=== PATIENT | male | born 1950 | race Caucasian/White ===

== ENCOUNTER 2017-09-24 10:22 | Emergency (ER) | payer MEDICARE, OTHER ==
[~2017-09-24 10:22] MED LIST: ISOVUE-370 76%-LOCM 1 ML ONE
[2017-09-24 11:11] LABS: #Eosinphils 0.4 thou/uL (0.0-0.7); #Lymphocytes 2.8 thou/uL (1.20-3.40); #Neutrophils 5.4 thou/uL (1.40-6.50); %Basophils 0.3 % (0.0-1.0); %Lymphocytes 29.3 % (21.0-51.0); %Monocytes 10.2 % (0.0-10.0); Hematocrit 52.8 % (42.0-52.0); Mean Platelet Volume 8.3 fL (7.4-10.4); Red Blood Cell (RBC) Count 5.86 mill/uL (4.70-6.10); White Blood Cell (WBC) Count 9.6 thou/uL (4.8-10.8)
[2017-09-24 11:31] LABS: ALT (SGPT) 39 U/L (8-55); AST (SGOT) 45 U/L (5-34); Alkaline Phosphatase 68 U/L (40-150); Anion Gap 13 mmol/L (10-20); BUN (Urea Nitrogen) 31 mg/dL (8.4-25.7); Bilirubin, Total 0.4 mg/dL (0.2-1.2); Calc. Creatinine Clearance 0 mL/min (70-130); Calcium 10.6 mg/dL (7.8-10.44); Carbon Dioxide 35 mmol/L (23-31); Chloride 96 mmol/L (98-107); Estimated GFR-MDRD 58; Globulin 4.2 g/dL (2.4-3.5); Protein, Total 8.7 g/dL (5.8-8.1)
--- NOTE | 2017-09-24 11:52 | RAD ---
CHEST PA AND LATERAL: HISTORY: A 66-year-old male with a history of dyspnea, shortness of breath, and COPD exacerbation. COMPARISON: 12/09/2016 FINDINGS: Mild stable increased linear and interstitial markings, particularly in the infrahilar and lower lung zones, evidence for stable chronic disease. Heart size is within normal limits. Stable biapical pl eural thickening. IMPRESSION: No acute intrathoracic disease. Stable chronic changes. POS: [facility]
[2017-09-24] MEDS ORDERED: methylPREDNISolone Sod Succ/PF 125 MG/2 ML VIAL ONE (12:29)
[2017-09-24] MEDS ORDERED: Water For Inject, Bacteriostat 30 ML ONE (12:30)
[2017-09-24 12:41] LABS: Modified Allen's Test POSITIVE; Oxyhemoglobin 93.9 % (94.0-97.0); Sodium 142 mmol/L (135-148)
[2017-09-24 12:42] LABS: Mode 3L/M NASAL CANNULA
[2017-09-24 12:55] LABS: Troponin I Less than 0.010 ng/mL (< 0.028)
--- NOTE | 2017-09-24 13:33 | CT ---
NONCONTRAST ENHANCED CT CHEST: Date: 09/24/17 HISTORY: Productive cough. FINDINGS: Noncontrast enhanced CT of the chest is performed. Coronary artery calcifications seen. Some minimal superior and AP window prominent lymph nodes seen. These are stable and unchanged since the previous comparison CT of July 2014 and are unchanged. No newly developed masses or lesions are seen. No ev idence of pulmonary parenchymal masses seen. No other significant pulmonary, parenchymal, or mediasti nal abnormalities noted. No evidence of pleural or pericardial effusions seen. IMPRESSION: Some coronary artery calcifications. Otherwise unremarkable noncontrast enhanced CT chest. POS: [facility]
== END 2017-09-24 15:57 | disposition home or self-care (01) ==
LOC: ERS 10:22
DX: J44.1 Chronic obstructive pulmonary disease with (acute) exacerbation (principal); I50.9 Heart failure, unspecified; Z87.891 Personal history of nicotine dependence; Z79.82 Long term (current) use of aspirin; Z79.899 Other long term (current) drug therapy; Z79.4 Long term (current) use of insulin
CPT/HCPCS: 71020; 71250; 80053; 82553; 82805; 83880; 84484; 85025; 93005; 94640; 94760; 96374; J2930; J7620

== ENCOUNTER 2018-01-27 09:00 | Day surgery (SDC) | payer MEDICARE ==
[2018-01-26 11:46] VITALS: BMI 47.6
--- NOTE | 2018-01-27 12:06 | OP ---
DATE OF PROCEDURE: 01/27/2018 SURGEON: Jerman Claros M.D. HOUSING INSTALLER SURGEON: None. PROCEDURE: Colonoscopy with snare polypectomy. INDICATION: 1. Positive Cologuard test. 2. This is the patient's first colonoscopy. MEDICATIONS: See anesthesia record. FINDINGS: After discussion of the risks, benefits and alternatives of the procedure, informed consen t was obtained and witnessed. Pre-endoscopic cardiopulmonary examination was satisfactory. Timeout was performed before sedation was achieved. Sedation was achieved with anesthesia assistance in the endoscopy unit. PROCEDURE IN DETAIL: A digital rectal exam was performed which demonstrated some external hemorrhoid s. A Pentax adult colonoscope was inserted into the anus and passed forward to the cecum in the usua l fashion. The cecal base was identified by the ileocecal valve. I was unable to visualize the appe ndiceal orifice due to a poor bowel preparation. The bowel preparation was poor throughout the colon , particularly in the right colon with a large amount of liquid and semi-solid stool obscuring a sign ificant portion of the colonic mucosa. I did complete the exam to the cecum to rule out large mass l esions, but certainly polyps less than 6 mm in size may have been missed. Where visualized, the colo yahir mucosa appeared normal. There was a 3 mm sessile polyp identified in the sigmoid colon. This wa s completely removed with cold snare and retrieved for pathology. Retroflexion in the rectum was unr emarkable. The colonoscope was completely withdrawn and the patient allowed to recover. The patient tolerated the procedure well. There were no immediate post-procedure complications. IMPRESSION: 1. A 3 mm sigmoid colon polyp, completely removed with cold snare and retrieved for pathology. 2. Poor bowel preparation, with large amount of stool obscuring a significant portion of the colonic mucosa. RECOMMENDATIONS: 1. Follow up pathology on the sigmoid colon polyp. 2. Colonoscopy will need to be repeated at the patient's convenience within the next couple of month s, due to the poor bowel preparation.
[2018-01-27] MEDS ORDERED: PROPOFOL 200 MG/20 ML VIAL ONE (15:23)
[2018-01-27] MEDS ORDERED: Lidocaine 1% PF 5 ML VIAL ONE (15:23)
== END 2018-01-27 13:24 | disposition home or self-care (01) ==
LOC: SDC 09:00
PROVIDERS: ATTEND Internal Medicine
PROC: 0DBH8ZX Excision of Cecum, Via Natural or Artificial Opening Endoscopic, Diagnostic (ICD-10-PCS; principal; 2018-01-27)
DX: K63.5 Polyp of colon (principal); K64.4 Residual hemorrhoidal skin tags; R19.5 Other fecal abnormalities; J44.9 Chronic obstructive pulmonary disease, unspecified; E78.5 Hyperlipidemia, unspecified; E11.9 Type 2 diabetes mellitus without complications; I50.9 Heart failure, unspecified; E66.01 Morbid (severe) obesity due to excess calories; Z68.42 Body mass index [BMI] 45.0-49.9, adult; Z87.891 Personal history of nicotine dependence; Z79.4 Long term (current) use of insulin; Z79.82 Long term (current) use of aspirin; Z79.899 Other long term (current) drug therapy
CPT/HCPCS: 36416; 88305; J2001; J2704

== ENCOUNTER 2018-07-27 10:20 | Outpatient (CLI) | payer MEDICARE ==
--- NOTE | 2018-07-27 12:42 | ULT ---
ABDOMINAL AORTIC ULTRASOUND WITH GRAYSCALE AND COLOR DOPPLER IMAGING AND SPECTRAL ANALYSIS: Clinical history: Abdominal aortic screening for aneurysm. Comparison: 07-09-17 FINDINGS: There is diminished acoustic penetration of the abdomen due to body habitus. The proximal abdominal a selene does approximate 3 cm, as visualized. Midabdominal aorta is slightly greater than 2 cm as demons trated. Distal aorta not well visualized. IMPRESSION: Suboptimal visualization of the aorta. Borderline aneurysmal dilatation is suggested, however, involv ing the proximal aorta. This may be further assessed with follow up CT of the abdomen for further claudette racterization. POS: [facility]
== END 2018-07-27 10:21 | disposition home or self-care (01) ==
LOC: BICULT 10:20
PROVIDERS: ATTEND Nurse Practitioner Family
DX: Z13.6 Encounter for screening for cardiovascular disorders (principal)
CPT/HCPCS: 76775

== ENCOUNTER 2019-04-28 10:06 | Emergency (ER) | payer MEDICARE ==
[2019-04-28 10:32] LABS: #Eosinphils 0.4 thou/uL (0.0-0.7); #Neutrophils 7.3 thou/uL (1.40-6.50); %Basophils 0.4 % (0.0-1.0); %Eosinophils 3.1 % (0.0-10.0); %Lymphocytes 25.6 % (21.0-51.0); %Monocytes 8.4 % (0.0-10.0); %Neutrophils 62.5 % (42.0-75.0); Hemoglobin 15.3 g/dL (14.0-18.0); Mean Corpuscular HGB CONC 30.7 g/dL (32.0-36.0); Mean Corpuscular Hemoglobin 26.1 pg (27.0-31.0); Mean Corpuscular Volume 85.3 fL (78.0-98.0); Mean Platelet Volume 7.7 fL (7.4-10.4); Platelet Count 382 thou/uL (130-400); RBC Distribution Width 14.9 % (11.5-14.5); Red Blood Cell (RBC) Count 5.86 mill/uL (4.70-6.10); White Blood Cell (WBC) Count 11.6 thou/uL (4.8-10.8)
[2019-04-28] MEDS ORDERED: methylPREDNISolone Sod Succ/PF 125 MG/2 ML VIAL ONE (10:36)
[2019-04-28 10:57] LABS: ALT (SGPT) 54 U/L (8-55); AST (SGOT) 51 U/L (5-34); Albumin 4.7 g/dL (3.4-4.8); Alkaline Phosphatase 67 U/L (40-150); Anion Gap 15 mmol/L (10-20); BUN (Urea Nitrogen) 32 mg/dL (8.4-25.7); Bilirubin, Total 0.4 mg/dL (0.2-1.2); Calc. Creatinine Clearance 0 mL/min (70-130); Calcium 10.9 mg/dL (7.8-10.44); Carbon Dioxide 31 mmol/L (23-31); Chloride 97 mmol/L (98-107); Estimated GFR-MDRD 62; Glucose 133 mg/dL (80-115); Potassium 4.9 mmol/L (3.5-5.1); Protein, Total 8.7 g/dL (5.8-8.1); Sodium 138 mmol/L (136-145)
--- NOTE | 2019-04-28 10:57 | RAD ---
Exam: Chest one view HISTORY:Short of breath Comparison: 11/18/2016 FINDINGS: Lungs: No masses or consolidation. Cardiac silhouette:Accentuated by portable technique. Vascular calcification. Pulmonary vessels: Mild central prominence Pleural Spaces: Clear Pneumothorax: None Osseous abnormalities: None of acuity. IMPRESSION: Evidence to indicate mild fluid overload. Correlate clinically.
[2019-04-28] MEDS ORDERED: Aspirin Chewable 81 MG TAB ONE (13:54)
--- NOTE | 2019-04-30 13:23 | EKG ---
Test Reason : SOB Blood Pressure : / mmHG Vent. Rate : 096 BPM Atrial Rate : 096 BPM P-R Int : 144 ms QRS Dur : 108 ms QT Int : 354 ms P-R-T Axes : 053 084 057 degrees QTc Int : 447 ms Normal sinus rhythm Normal ECG No ST elevation/PR Confirmed by JOSHUA Johnson, MIS ([id number]), editorial intern ROSEANN FRANCO ([id number]) on 04/30/2019 1:23:33 PM Referred By: JOSHUA Confirmed By:MIS LEWIS M.D.
== END 2019-04-28 15:13 | disposition home or self-care (01) ==
LOC: ERS 10:06
DX: J44.1 Chronic obstructive pulmonary disease with (acute) exacerbation (principal); E78.5 Hyperlipidemia, unspecified; I11.0 Hypertensive heart disease with heart failure; I50.9 Heart failure, unspecified; Z87.891 Personal history of nicotine dependence
CPT/HCPCS: 36415; 36416; 71045; 80053; 83880; 84484; 85025; 93005; 94640; 96361; 96374; J2930; J7620

== ENCOUNTER 2019-05-19 05:53 | Day surgery (SDC) | payer MEDICARE ==
[2019-05-18 13:19] VITALS: BMI 46.2
[2019-05-19] MEDS ORDERED: Lidocaine 1% (PF) 30 ML VIAL ONE (06:39)
[2019-05-19 06:46] LABS: PTT 28.6 SEC (22.9-36.1)
[2019-05-19 06:56] LABS: Hemoglobin 15.1 g/dL (14.0-18.0); Mean Corpuscular HGB CONC 32.1 g/dL (32.0-36.0); Mean Corpuscular Hemoglobin 26.8 pg (27.0-31.0); Mean Corpuscular Volume 83.5 fL (78.0-98.0); Platelet Count 230 thou/uL (130-400); RBC Distribution Width 15.5 % (11.5-14.5); Red Blood Cell (RBC) Count 5.65 mill/uL (4.70-6.10); White Blood Cell (WBC) Count 8.8 thou/uL (4.8-10.8)
[2019-05-19] MEDS ORDERED: Nitroglycerin 100MG/250ML BOT 250 ML ONE (06:56)
[2019-05-19] MEDS ORDERED: Heparin 10,000 UNITS/1 ML VIAL ONE (06:56)
[2019-05-19] MEDS ORDERED: Verapamil 5 MG/2 ML VIAL ONE (06:56)
[2019-05-19 06:58] LABS: Band 2 % (5-11); Eosinophils 3 % (0-10); Lymphocytes 31 % (21-51); MDiff Complete? YES; Metamyelocyte 1 % (0-0); Monocytes 13 % (0-10); Neutrophil 50 % (42-75); Platelet Morphology Comment Appears Adequate
[2019-05-19] MEDS ORDERED: Fentanyl 100 MCG/2 ML VIAL ONE (07:35)
[2019-05-19] MEDS ORDERED: Midazolam HCl 2 mg/2 ml Vial ONE (07:35)
[2019-05-19 07:49] LABS: ALT (SGPT) 50 U/L (8-55); AST (SGOT) 63 U/L (5-34); Albumin 4.3 g/dL (3.4-4.8); Alkaline Phosphatase 59 U/L (40-150); Anion Gap 12 mmol/L (10-20); BUN (Urea Nitrogen) 24 mg/dL (8.4-25.7); Bilirubin, Total 0.3 mg/dL (0.2-1.2); Calc. Creatinine Clearance 134 mL/min (70-130); Calcium 10.5 mg/dL (7.8-10.44); Carbon Dioxide 31 mmol/L (23-31); Chloride 100 mmol/L (98-107); Estimated GFR-MDRD 74; Globulin 3.3 g/dL (2.4-3.5); Glucose 188 mg/dL (80-115); Protein, Total 7.6 g/dL (5.8-8.1); Sodium 139 mmol/L (136-145)
== END 2019-05-19 11:40 | disposition home or self-care (01) ==
LOC: CCL 05:53
PROVIDERS: ATTEND Internal Medicine Cardiovascular Disease
PROC: 4A023N7 Measurement of Cardiac Sampling and Pressure, Left Heart, Percutaneous Approach (ICD-10-PCS; principal; 2019-05-19)
PROC: B2111ZZ Fluoroscopy of Multiple Coronary Arteries using Low Osmolar Contrast (ICD-10-PCS; 2019-05-19)
DX: I25.10 Atherosclerotic heart disease of native coronary artery without angina pectoris (principal); E78.00 Pure hypercholesterolemia, unspecified; I10 Essential (primary) hypertension; E11.9 Type 2 diabetes mellitus without complications; J44.9 Chronic obstructive pulmonary disease, unspecified; F98.8 Other specified behavioral and emotional disorders with onset usually occurring in childhood and adolescence; K21.9 Gastro-esophageal reflux disease without esophagitis; I49.3 Ventricular premature depolarization; E78.2 Mixed hyperlipidemia; I27.9 Pulmonary heart disease, unspecified; E66.9 Obesity, unspecified; Z68.42 Body mass index [BMI] 45.0-49.9, adult; Z82.49 Family history of ischemic heart disease and other diseases of the circulatory system; Z79.4 Long term (current) use of insulin; Z79.82 Long term (current) use of aspirin; Z79.899 Other long term (current) drug therapy
CPT/HCPCS: 80053; 85025; 85610; 85730; 93458; 99152; C1769; J1644; J2001; J2250; J3010

== ENCOUNTER 2019-08-08 00:21 | Inpatient (IN) | payer MEDICARE ==
[2019-08-08] MEDS ORDERED: methylPREDNISolone Sod Succ/PF 125 MG/2 ML VIAL ONE (01:16)
[2019-08-08 01:39] LABS: #Eosinphils 0.2 thou/uL (0.0-0.7); #Lymphocytes 1.3 thou/uL (1.20-3.40); #Monocytes 0.6 thou/uL (0.11-0.59); #Neutrophils 9.3 thou/uL (1.40-6.50); %Basophils 0.1 % (0.0-1.0); %Eosinophils 2.1 % (0.0-10.0); %Lymphocytes 11.5 % (21.0-51.0); %Neutrophils 81.2 % (42.0-75.0); Hemoglobin 14.2 g/dL (14.0-18.0); Mean Corpuscular HGB CONC 32.2 g/dL (32.0-36.0); Mean Corpuscular Hemoglobin 27.4 pg (27.0-31.0); Mean Corpuscular Volume 85.2 fL (78.0-98.0); Mean Platelet Volume 8.1 fL (7.4-10.4); Platelet Count 299 thou/uL (130-400); RBC Distribution Width 14.8 % (11.5-14.5); Red Blood Cell (RBC) Count 5.18 mill/uL (4.70-6.10); White Blood Cell (WBC) Count 11.5 thou/uL (4.8-10.8)
[2019-08-08 01:44] LABS: Actual Bicarbonate (HCO3a) 34.4 mEq/L (22-28); Analyzer IN Cardio ER; Base Excess (BEa) 5.4 mEq/L (-2.0 to +3.0); Carboxyhemoglobin (COHb) 1.1 gm% (0.0-3.0); Hemoglobin (Hb) 14.2 g/dL (14.0-18.0); O2 Tension (PaO2) 86.1 mmHg (> 80.0); Potassium - ABG Lab 4.89 mmol/L (3.70-5.30)
[2019-08-08 01:45] LABS: CO2 Tension 71.8 mmHg (35.0-45.0); Puncture Site LBA
[2019-08-08 02:03] LABS: ALT (SGPT) 34 U/L (8-55); AST (SGOT) 33 U/L (5-34); Albumin 4.5 g/dL (3.4-4.8); Alkaline Phosphatase 64 U/L (40-110); Anion Gap 19 mmol/L (10-20); BUN (Urea Nitrogen) 25 mg/dL (8.4-25.7); Bilirubin, Total 0.2 mg/dL (0.2-1.2); Calc. Creatinine Clearance 0 mL/min (70-130); Calcium 9.4 mg/dL (7.8-10.44); Carbon Dioxide 26 mmol/L (23-31); Chloride 97 mmol/L (98-107); Estimated GFR-MDRD 64; Globulin 3.5 g/dL (2.4-3.5); Glucose 126 mg/dL (80-115); Sodium 137 mmol/L (136-145)
[2019-08-08] MEDS ORDERED: Albuterol Sulfate 2.5 mg/0.5 ml Neb ONE (03:03)
[2019-08-08] MEDS ORDERED: Albuterol Sulfate 2.5 mg/3 ml Neb ONE (03:03)
[2019-08-08 05:00] LABS: Troponin I Less than 0.010 ng/mL (< 0.028)
[2019-08-08] MEDS ORDERED: Acetaminophen 325 MG TAB PO PRN (05:00)
[2019-08-08] MEDS ORDERED: Senokot S 8.6-50 MG TAB PO PRN (05:00)
[2019-08-08] MEDS ORDERED: HumaLOG 300 UNITS/3 ML VIAL SC PRN (05:03)
[2019-08-08] MEDS ORDERED: Dextrose 5% in Water 1,000 ML IV PRN (05:03)
[2019-08-08] MEDS ORDERED: Dextrose 50% Abboject 50 ML SYRINGE SLOW IVP PRN (05:03)
--- NOTE | 2019-08-08 06:05 | HP ---
CHIEF COMPLAINT: Shortness of breath. HISTORY OF PRESENT ILLNESS: The patient is a 68-year-old male with a history of hypertension, obesity, and COPD, who presents to the hospital with worsening shortness of breath for the past 3 days. The patient's is at the bedside, states that the patient at baseline has minimal activity; however, for the past 3 days, he has worsening shortness of breath even with that. He denies any fevers or chills, any chest pain or chest pressure. The did state that he was nauseated and had emesis times 2 to 3. Denies any diarrhea or abdominal pain. Denies any sick contacts. The patient normally uses 4 L of oxygen on a daily basis and uses a BiPAP at night; however, for the past few days, he has been using more DuoNebs. Also, according to the patient's , he has been more drowsy. PAST MEDICAL HISTORY: He has a history of diabetes, obesity, hyperlipidemia, and COPD. The patient also has a history of hypertension. He also has a history of abnormal LFTs in the past and also back pain. SURGICAL HISTORY: Left knee surgery at the age of 20, unknown what procedure he had done. FAMILY HISTORY: Father at the age of 46, [place] and also heart disease in mother. SOCIAL HISTORY: He was a former smoker, quit in 2010. Denies any drug use or alcohol history. He is a full code. Lives with his . REVIEW OF SYSTEMS: All negative except for the ones mentioned above in the HPI. ALLERGIES: HE HAS NO KNOWN DRUG ALLERGIES. MEDICATIONS: He is on; 1. Aspirin 81 mg daily. 2. Iron 325 daily. 3. Lasix 40 mg twice a day. 4. Gabapentin 600 mg t.i.d. 5. Gemfibrozil 600 mg b.i.d. before meals. 6. Glimepiride 4 mg b.i.d. 7. Insulin 10 units daily. 8. DuoNeb q.i.d. 9. Lisinopril 2.5 daily. 10. Metformin 1000 mg b.i.d. 11. Singulair 10 mg p.o. daily. 12. Pravastatin 40 mg daily. LABORATORY RESULTS: Are as of the following. The patient's WBCs are 11.5, hemoglobin of 14.2, hematocrit of 44.1. His platelets are 299. Chemistry; sodium of 137, potassium of 5.0, BUN of 25, and creatinine 1.14, glucose is 126. Troponin x2 were negative. His BNP is 18. He did have a chest x-ray, which appears to be mildly increased vascular congestion. EKG, no ST elevation or depression noted. He also had a blood gas, which indicated a pH of 7.30, pCO2 of 71.8. PHYSICAL EXAMINATION: VITAL SIGNS: Are as of the following; temperature of 98.6, 96% on BiPAP, respiration 24, blood pressure 143/95, pulse 99. GENERAL: The patient is awake, alert, and oriented x3, does not appear in any distress. HEENT: Normocephalic, atraumatic. No lymphadenopathy noted. Pupils are equal and reactive to light. CV: S1 and S2 present. No murmurs, rubs, or gallops. LUNGS: Mild expiratory wheezing heard all over. ABDOMEN: Soft, nontender. Bowel sounds are present x2. Obese. EXTREMITIES: Lower extremity mild +1 edema. Pedal pulses are present x2. NEUROVASCULAR: No focal deficits noted. He is alert, oriented x3, on BiPAP, looks comfortable. SKIN: No cuts, lesions, or bruises noted. ASSESSMENT AND PLAN: The patient is a very pleasant 68-year-old male, who presents to the hospital with complaints of shortness of breath. 1. Shortness of breath, most likely secondary to chronic obstructive pulmonary disease exacerbation versus cardiac. The patient recently had a cardiac cath in April 2019 or May 2019, which was essentially normal. Medical management was recommended. He has never had an echocardiogram. I am not sure if that would be helpful in this patient. The patient's BNP is normal; however, given his obesity, I think that is not true. I will start the patient on IV Lasix given his chest x-ray findings. Also, we will put him on Solu-Medrol and DuoNeb and consult Pulmonary. The patient has been using a BiPAP at night, which I will order also. He is on 4 L of oxygen and when he came into the hospital, his sats were dropped. Before coming to the hospital, his oxygenation was like in the 70s. I will also get a flu swab on this patient; however, he does not have any significant symptoms. 2. Diabetes. We will continue his sliding scale insulin as scheduled and continue to monitor. 3. Hypertension. We will continue his home medications. 4. Obesity. We educated on diet and weight loss. 5. Deep venous thrombosis prophylaxis. We will put the patient on SCDs. Job ID: [id number]
[2019-08-08] MEDS ORDERED: Furosemide 40 MG/4 ML VIAL ONE (07:46)
[2019-08-08] MEDS ORDERED: methylPREDNISolone Sod Succ 40 MG VIAL ONE (07:46)
[2019-08-08] MEDS ORDERED: Aspirin Chewable 81 MG TAB ONE (07:46)
[2019-08-08] MEDS ORDERED: Famotidine 20 MG TAB ONE (07:46)
[2019-08-08] MEDS: Aspirin 81 mg Enteric Coated Tablet PO SCH (08:00)
[2019-08-08] MEDS: Famotidine 20 MG TAB PO SCH ×2 (08:01→20:07)
[2019-08-08] MEDS: Furosemide 40 MG/4 ML VIAL SLOW IVP SCH (08:01)
[2019-08-08] MEDS: methylPREDNISolone Sod Succ 40 MG VIAL IVP SCH (08:01)
[2019-08-08 08:06] LABS: Troponin I Less than 0.010 ng/mL (< 0.028)
--- NOTE | 2019-08-08 08:12 | RAD ---
PORTABLE CHEST: DATE: 08/08/2019. PROVIDED CLINICAL HISTORY: Shortness of breath. FINDINGS: Comparison 04/28/2019. Evaluation is limited by patient body habitus. Cardiac and mediastinal silhouette is unchanged in ap pearance. Chronic obstructive changes are redemonstrated. Prominence of the pulmonary interstitium and vasculature may be technical in nature. No focal consolidation, pleural fluid, or pneumothorax a pparent. IMPRESSION: No definite evidence for an acute cardiopulmonary process. POS: [facility]
[2019-08-08] MEDS ORDERED: Enoxaparin Sodium 40 MG/0.4 ML SYRINGE ONE (10:31)
[2019-08-08 10:32] LABS: Actual Bicarbonate (HCO3a) 33.5 mEq/L (22-28); Analyzer IN Cardio ER; Base Excess (BEa) 6.2 mEq/L (-2.0 to +3.0); CO2 Tension 59.9 mmHg (35.0-45.0); Calcium, Ionized 1.18 mmol/L (1.12-1.30); Carboxyhemoglobin (COHb) 1.2 gm% (0.0-3.0); Hemoglobin (Hb) 14.5 g/dL (14.0-18.0); O2 Tension (PaO2) 65.7 mmHg (> 80.0); Potassium - ABG Lab 5.31 mmol/L (3.70-5.30); pH, Arterial 7.37 (7.35-7.45)
[2019-08-08] MEDS: Enoxaparin Sodium 40 MG/0.4 ML SYRINGE SC SCH (10:34)
[2019-08-08 10:38] LABS: ALV-art Gradient 116.105 (0-20); Puncture Site RRA
[2019-08-08] MEDS: Mometasone/Formoterol 120 PUFF INHALER INH SCH ×3 (11:11→18:08)
--- NOTE | 2019-08-08 16:47 | PDOC.HOSPP ---
- Subjective Encounter Date: 08/08/19 Encounter Time: 16:45 Subjective: off BIPAP several hrs. no resp distress - Objective Vital Signs & Weight: Vital Signs (12 hours) Temp Pulse Resp BP Pulse Ox 08/08/19 15:34 97.6 F 93 22 H 180/73 H 100 08/08/19 11:16 96 24 H 95 Result Diagrams: 08/08/19 01:20 08/08/19 01:20 Hospitalist ROS - Medication Medications: Active Medications Generic Name Dose Route Start Last Admin Trade Name Freq PRN Reason Stop Dose Admin Albuterol/Ipratropium 3 ml 08/08/19 07:00 08/08/19 11:16 Duoneb NEB 3 ml [id number] VIELKA Administration Aspirin 81 mg 08/08/19 09:00 08/08/19 08:00 Ecotrin PO 81 mg DAILY VIELKA Administration Enoxaparin Sodium 40 mg 08/08/19 09:00 08/08/19 10:34 Lovenox SC 40 mg 0900 VIELKA Administration Famotidine 20 mg 08/08/19 09:00 08/08/19 08:01 Pepcid PO 20 mg BID VIELKA Administration Furosemide 40 mg 08/08/19 09:00 08/08/19 08:01 Lasix SLOW IVP 40 mg DAILY VIELKA Administration Levofloxacin 750 mg/ Device 150 mls @ 100 mls/hr 08/08/19 06:00 08/08/19 08: 00 IVPB 150 mls Q24HR VIELKA Administration Methylprednisolone Sodium Succinate 40 mg 08/08/19 09:00 08/08/19 08:01 Solu-Medrol IVP 40 mg DAILY VIELKA Administration Mometasone Furoate/Formoterol Fumar 2 puff 08/08/19 06:30 08/08/19 11:11 Dulera 200 Mcg/5 Mcg Inhaler INH Not Given BID-RT VIELKA - Exam Neck: no JVD Heart: RRR, no murmur Respiratory: no wheezes, no rales, no ronchi Respiratory - other findings: decreased BS, non-focal Gastrointestinal: soft, non-tender, normal bowel sounds Extremities: 1+ LE edema Hosp A/P (1) Acute on chronic respiratory failure with hypoxia and hypercapnia Code(s): J96.21 - ACUTE AND CHRONIC RESPIRATORY FAILURE WITH HYPOXIA; J96.22 - ACUTE AND CHRONIC RESPIRATORY FAILURE WITH HYPERCAPNIA Status: Acute (2) COPD exacerbation Code(s): J44.1 - CHRONIC OBSTRUCTIVE PULMONARY DISEASE W (ACUTE) EXACERBATION Status: Acute (3) DM type 2 (diabetes mellitus, type 2) Status: Chronic Qualifiers: Diabetes mellitus exterminator helper insulin use: with exterminator helper use Diabetes mellitus complication status: without complication Qualified Code(s): E11.9 - Type 2 diabetes mellitus without complications; Z79.4 - halfway (current) use of insulin (4) HTN (hypertension) Code(s): I10 - ESSENTIAL (PRIMARY) HYPERTENSION Status: Acute Qualifiers: Hypertension type: essential hypertension Qualified Code(s): I10 - Essential (primary) hypertension - Plan steroids, nebs, antibx O2, [facility]
[2019-08-08 18:19] VITALS: BMI 47.0
[2019-08-08] MEDS: Montelukast Sodium 10 mg Tablet PO SCH (20:06)
[2019-08-08] MEDS: Amitriptyline HCl 100 MG TAB PO SCH (20:06)
[2019-08-08] MEDS: cloNIDine 0.1 MG TAB PO SCH (20:06)
[2019-08-08] MEDS: guaiFENesin ER 600 MG TAB PO SCH (20:07)
[2019-08-08] MEDS: Atorvastatin Calcium 10 MG TAB PO SCH (20:07)
[2019-08-08] MEDS: Insulin Glargine 70 UNITS in Pre-Filled Syringe SC SCH (20:56)
[2019-08-08] MEDS ORDERED: INSULIN DETEMIR SQ SCH (21:00)
[2019-08-08] MEDS ORDERED: metFORMIN 500 MG TAB PO SCH (21:00)
[2019-08-09 05:34] LABS: #Lymphocytes 2.2 thou/uL (1.20-3.40); #Monocytes 0.8 thou/uL (0.11-0.59); #Neutrophils 9.1 thou/uL (1.40-6.50); %Basophils 0.1 % (0.0-1.0); %Eosinophils 0.4 % (0.0-10.0); %Monocytes 6.4 % (0.0-10.0); %Neutrophils 75.2 % (42.0-75.0); Hemoglobin 14.1 g/dL (14.0-18.0); Mean Corpuscular HGB CONC 31.9 g/dL (32.0-36.0); Mean Corpuscular Hemoglobin 26.9 pg (27.0-31.0); Mean Corpuscular Volume 84.2 fL (78.0-98.0); Mean Platelet Volume 8.1 fL (7.4-10.4); Platelet Count 296 thou/uL (130-400); RBC Distribution Width 14.7 % (11.5-14.5); Red Blood Cell (RBC) Count 5.23 mill/uL (4.70-6.10); White Blood Cell (WBC) Count 12.1 thou/uL (4.8-10.8)
[2019-08-09 05:53] LABS: Anion Gap 14 mmol/L (10-20); BUN (Urea Nitrogen) 32 mg/dL (8.4-25.7); Calc. Creatinine Clearance 125 mL/min (70-130); Calcium 10.1 mg/dL (7.8-10.44); Carbon Dioxide 31 mmol/L (23-31); Chloride 97 mmol/L (98-107); Estimated GFR-MDRD 67; Glucose 154 mg/dL (80-115); Potassium 4.2 mmol/L (3.5-5.1); Sodium 138 mmol/L (136-145)
[2019-08-09] MEDS: Furosemide 40 MG TAB PO SCH ×2 (06:31→16:48)
[2019-08-09] MEDS: Mometasone/Formoterol 120 PUFF INHALER INH SCH ×3 (07:43→19:01)
[2019-08-09] MEDS: metFORMIN 500 MG TAB PO SCH ×2 (08:37→16:46)
[2019-08-09] MEDS: Aspirin 81 mg Enteric Coated Tablet PO SCH (08:37)
[2019-08-09] MEDS: Gemfibrozil 600 MG TAB PO SCH ×2 (08:37→16:46)
[2019-08-09] MEDS: cloNIDine 0.1 MG TAB PO SCH ×3 (08:38→20:38)
[2019-08-09] MEDS: Fish Oil 1,000 MG CAP PO SCH (08:38)
[2019-08-09] MEDS: Venlafaxine HCl XR 150 MG CAP PO SCH (08:38)
[2019-08-09] MEDS: Gabapentin 300 MG CAP PO SCH ×3 (08:38→20:38)
[2019-08-09] MEDS: Ferrous Sulfate 325 MG TAB PO SCH (08:38)
[2019-08-09] MEDS: Spironolactone 25 MG TAB PO SCH (08:39)
[2019-08-09] MEDS: guaiFENesin ER 600 MG TAB PO SCH ×2 (08:40→20:39)
[2019-08-09] MEDS: Famotidine 20 MG TAB PO SCH ×2 (08:42→20:38)
[2019-08-09] MEDS: Glimepiride 4 MG TAB PO SCH ×2 (08:42→16:45)
[2019-08-09] MEDS: Lisinopril 2.5 MG TAB PO SCH (08:42)
[2019-08-09] MEDS: methylPREDNISolone Sod Succ 40 MG VIAL IVP SCH (08:43)
[2019-08-09] MEDS: Enoxaparin Sodium 40 MG/0.4 ML SYRINGE SC SCH (08:43)
[2019-08-09] MEDS: Insulin Glargine 70 UNITS in Pre-Filled Syringe SC SCH ×2 (08:48→20:39)
[2019-08-09] MEDS ORDERED: Prevnar 13-Val Conj/PF 0.5 ML SYRINGE IM ONE (09:00)
[2019-08-09] MEDS ORDERED: Non-Formulary Item 1 EACH (Empagliflozin [Jardiance] 10 MG) PO SCH (09:00)
[2019-08-09] MEDS ORDERED: Non-Formulary Item 1 EACH (Tiotropium [Spiriva Handihaler] 18 MCG) INH SCH (09:00)
[2019-08-09] MEDS ORDERED: (Empagliflozin [Jardiance] 10 MG) PO SCH (09:00)
--- NOTE | 2019-08-09 10:27 | CON ---
DATE OF CONSULTATION: 08/09/2019 CONSULTING PHYSICIAN: Hospitalist Group. REASON FOR CONSULTATION: COPD exacerbation. HISTORY OF PRESENT ILLNESS: Mr. Miller is very well known to me. He is a 68-year-old male with severe COPD, cor pulmonale, and probable obesity hypoventilation syndrome. He has LINDA. He is on a Trilogy ventilator at home at night. He takes Zithromax daily for prevention of chronic bronchitis exacerbations. Generally, he has done surprisingly well over the last 3 years. Over the weekend, he had difficulty with altered mental status, increasing shortness of breath, and his Trilogy machine was alarming "low tidal volumes." He now feels much better and says he is back to his baseline and he wants to go home. PAST MEDICAL HISTORY: See above. Additionally, he has diabetes mellitus, hypertension, and morbid obesity. PAST SURGICAL HISTORY: Left knee surgery. FAMILY MEDICAL HISTORY: Remarkable for coronary artery disease. SOCIAL HISTORY: Quit smoking in 2010. Does not use alcohol or illicit drugs. ALLERGIES: NONE. MEDICATIONS: Prior to admission; 1. Aspirin. 2. Iron. 3. Lasix. 4. Gabapentin. 5. Gemfibrozil. 6. Glipizide. 7. Insulin. 8. DuoNeb. 9. Lisinopril. 10. Metformin. 11. Singulair. 12. Pravastatin. 13. He is also on Zithromax 250 mg daily. REVIEW OF SYSTEMS: No fever, chills, nausea, vomiting, chest pain, hematemesis, melena, hematochezia, hematuria, or dysuria. PHYSICAL EXAMINATION: VITAL SIGNS: Temperature 98.1, pulse 101, blood pressure 178/97, and O2 saturation 96% on 4 L. GENERAL: He is awake, alert, sitting up and is in absolutely no distress. HEENT: Pupils react. Sclerae are anicteric. Oropharynx clear. NECK: No adenopathy or JVD. LUNGS: He has some mild end-expiratory wheezing. CARDIOVASCULAR: S1 and S2 regular without audible murmur. ABDOMEN: Morbidly obese, soft, nontender. EXTREMITIES: No clubbing or cyanosis. He has trace pedal edema. IMAGING DATA: His chest x-ray demonstrates hyperinflation without evidence of mass, effusion, or infiltrate. LABORATORY DATA: White blood cell count 12.1, hematocrit 44, and platelet count 296. PH of 7.37, pCO2 of 59, and pO2 of 65. Sodium 138, potassium 4.2, chloride 97, CO2 of 31, BUN 32, creatinine 1.0, and glucose 154. ASSESSMENT: 1. Chronic obstructive pulmonary disease with exacerbation. 2. Chronic hypoxic and hypercapnic respiratory failure. 3. Diabetes mellitus. 4. Morbid obesity. 5. Obstructive sleep apnea. 6. Probable obesity hypoventilation syndrome. PLAN: 1. Currently, the patient seems well compensated and is close to his baseline. I have reviewed the orders and agree with the antibiotics, nebulization treatments, and steroids. When he is discharged, he needs to be put back on his daily Zithromax - 250 mg daily. I would be very judicious about his Lasix as to not exacerbate the contraction alkalosis, which would cause his CO2 to increase. 2. I have asked his [employer] company to come out and access his Trilogy machine to make sure it is working properly. Job ID: [id number]
[2019-08-09] MEDS ORDERED: HYDROcodone/Acetaminophen 10/325 mg Tablet PO PRN (10:53)
--- NOTE | 2019-08-09 10:58 | PDOC.HOSPP ---
- Subjective Encounter Date: 08/09/19 Encounter Time: 10:55 Subjective: doing well - Objective Vital Signs & Weight: Vital Signs (12 hours) Temp Pulse Resp BP BP Pulse Ox 08/09/19 08:42 101 H 08/09/19 08:38 178/97 H 08/09/19 07:45 101 H 20 96 08/09/19 07:23 98.1 F 101 H 20 183/77 H 95 08/09/19 04:00 97.7 F 86 18 150/63 H 91 L 08/09/19 00:12 96 20 97 08/09/19 00:00 98.8 F 89 18 140/62 95 Weight Weight 300 lb 0.08 oz I&O: 08/08/19 08/09/19 08/10/19 06:59 06:59 06:59 Intake Total 880 Balance 880 Result Diagrams: 08/09/19 05:12 08/09/19 05:12 Additional Labs: Accuchecks 08/09/19 08/08/19 04:23 19:31 POC Glucose 149 H 263 H Hospitalist ROS - Medication Medications: Active Medications Generic Name Dose Route Start Last Admin Trade Name Freq PRN Reason Stop Dose Admin Acetaminophen 650 mg 08/08/19 05:00 08/09/19 04:59 Tylenol PO 650 mg Q4H PRN Administration Headache/Fever/Mild Pain (1-3) Amitriptyline HCl 100 mg 08/08/19 21:00 08/08/19 20:06 Elavil PO 100 mg HS VIELKA Administration Aspirin 81 mg 08/08/19 09:00 08/09/19 08:37 Ecotrin PO 81 mg DAILY VIELKA Administration Atorvastatin Calcium 10 mg 08/08/19 21:00 08/08/19 20:07 Lipitor PO 10 mg HS VIELKA Administration Clonidine 0.1 mg 08/08/19 21:00 08/09/19 08:38 Catapres PO 0.1 mg TID VIELKA Administration Enoxaparin Sodium 40 mg 08/08/19 09:00 08/09/19 08:43 Lovenox SC 40 mg 0900 VIELKA Administration Famotidine 20 mg 08/08/19 09:00 08/09/19 08:42 Pepcid PO 20 mg BID VIELKA Administration Ferrous Sulfate 325 mg 08/09/19 09:00 08/09/19 08:38 Feosol PO 325 mg DAILY VIELKA Administration Fish Oil 1,000 mg 08/09/19 09:00 08/09/19 08:38 Fish Oil PO 1,000 mg DAILY VIELKA Administration Furosemide 40 mg 08/09/19 06:00 08/09/19 06:31 Lasix PO 40 mg 06,15 VIELKA Administration Gabapentin 900 mg 08/09/19 07:30 08/09/19 08:38 Neurontin PO 900 mg BID-AC VIELKA Administration Gemfibrozil 600 mg 08/09/19 07:30 08/09/19 08:37 Lopid PO 600 mg BID-AC VIELKA Administration Glimepiride 4 mg 08/09/19 07:30 08/09/19 08:42 Amaryl PO 4 mg BID-AC VIELKA Administration Guaifenesin 1,200 mg 08/08/19 21:00 08/09/19 08:40 Mucinex PO 1,200 mg BID VIELKA Administration Insulin Glargine 70 units/ 0.7 mls @ 0 mls/hr 08/08/19 21:00 08/09/19 08:48 Miscellaneous Medication SC 0.7 mls BID VIELKA Administration Lisinopril 2.5 mg 08/09/19 09:00 08/09/19 08:42 Zestril PO 2.5 mg DAILY VIELKA Administration Metformin HCl 1,000 mg 08/09/19 08:00 08/09/19 08:37 Glucophage PO 1,000 mg BID-WM VIELKA Administration Mometasone Furoate/Formoterol Fumar 2 puff 08/08/19 18:30 08/09/19 07:47 Dulera 200 Mcg/5 Mcg Inhaler INH 2 puff BID-RT VIELKA Administration Montelukast Sodium 10 mg 08/08/19 21:00 08/08/19 20:06 Singulair PO 10 mg HS VIELKA Administration Pantoprazole Sodium 40 mg 08/09/19 09:00 08/09/19 08:40 Protonix PO 40 mg DAILY VIELKA Administration Spironolactone 12.5 mg 08/09/19 09:00 08/09/19 08:39 Aldactone PO 12.5 mg DAILY VIELKA Administration Venlafaxine HCl 150 mg 08/09/19 09:00 08/09/19 08:38 Effexor Xr PO 150 mg DAILY VIELKA Administration - Exam General Appearance: awake alert Neck: no JVD Heart: RRR, no murmur Respiratory: no wheezes, no rales, no ronchi Respiratory - other findings: distant BS Gastrointestinal: soft, non-tender, normal bowel sounds Extremities: 1+ LE edema Hosp A/P (1) Acute on chronic respiratory failure with hypoxia and hypercapnia Code(s): J96.21 - ACUTE AND CHRONIC RESPIRATORY FAILURE WITH HYPOXIA; J96.22 - ACUTE AND CHRONIC RESPIRATORY FAILURE WITH HYPERCAPNIA Status: Acute (2) COPD exacerbation Code(s): J44.1 - CHRONIC OBSTRUCTIVE PULMONARY DISEASE W (ACUTE) EXACERBATION Status: Acute (3) DM type 2 (diabetes mellitus, type 2) Status: Chronic Qualifiers: Diabetes mellitus residential insulin use: with ferry terminal supervisor use Diabetes mellitus complication status: without complication Qualified Code(s): E11.9 - Type 2 diabetes mellitus without complications; Z79.4 - ferry terminal supervisor (current) use of insulin (4) HTN (hypertension) Code(s): I10 - ESSENTIAL (PRIMARY) HYPERTENSION Status: Acute Qualifiers: Hypertension type: essential hypertension Qualified Code(s): I10 - Essential (primary) hypertension - Plan DC iv steroids, levaquin BIPAP machine has been repaired/adjusted DC iv lasix home tomorrow?
[2019-08-09] MEDS ORDERED: Azithromycin 250 MG TAB PO SCH (11:00)
[2019-08-09] MEDS ORDERED: Gabapentin 300 MG CAP PO SCH (15:00)
[2019-08-09] MEDS: Furosemide 40 MG/4 ML VIAL SLOW IVP SCH (15:46)
[2019-08-09] MEDS: Montelukast Sodium 10 mg Tablet PO SCH (20:38)
[2019-08-09] MEDS: Amitriptyline HCl 100 MG TAB PO SCH (20:38)
[2019-08-09] MEDS: Atorvastatin Calcium 10 MG TAB PO SCH (20:38)
[2019-08-10] MEDS: Furosemide 40 MG TAB PO SCH (06:08)
[2019-08-10] MEDS: Mometasone/Formoterol 120 PUFF INHALER INH SCH (07:08)
[2019-08-10] MEDS: Gemfibrozil 600 MG TAB PO SCH (08:16)
[2019-08-10] MEDS: Glimepiride 4 MG TAB PO SCH (08:16)
[2019-08-10] MEDS: Lisinopril 2.5 MG TAB PO SCH (08:17)
[2019-08-10] MEDS: cloNIDine 0.1 MG TAB PO SCH (08:17)
[2019-08-10] MEDS: Venlafaxine HCl XR 150 MG CAP PO SCH (08:17)
[2019-08-10] MEDS: metFORMIN 500 MG TAB PO SCH (08:18)
[2019-08-10] MEDS: Fish Oil 1,000 MG CAP PO SCH (08:18)
[2019-08-10] MEDS: Spironolactone 25 MG TAB PO SCH (08:19)
[2019-08-10] MEDS: Aspirin 81 mg Enteric Coated Tablet PO SCH (08:19)
[2019-08-10] MEDS: guaiFENesin ER 600 MG TAB PO SCH (08:19)
[2019-08-10] MEDS: Ferrous Sulfate 325 MG TAB PO SCH (08:21)
[2019-08-10] MEDS: Famotidine 20 MG TAB PO SCH (08:21)
[2019-08-10] MEDS: Enoxaparin Sodium 40 MG/0.4 ML SYRINGE SC SCH (08:22)
[2019-08-10] MEDS: Gabapentin 300 MG CAP PO SCH (08:23)
[2019-08-10] MEDS ORDERED: Azithromycin 250 MG TAB PO SCH (09:00)
[2019-08-10] MEDS ORDERED: predniSONE 20 MG TAB PO SCH (09:00)
--- NOTE | 2019-08-10 09:09 | PRG ---
DATE OF SERVICE: 08/10/2019 SUBJECTIVE: Mr. Miller looks good, has no complaints. The [employer] company did come by and repaired his Trilogy machine yesterday. OBJECTIVE: VITAL SIGNS: Temperature 97.5, pulse 88, respirations 16, O2 saturation 95%, and blood pressure 164/86. HEENT: Unremarkable. NECK: No adenopathy, JVD, or bruits. LUNGS: Fairly clear bilaterally. CARDIAC: S1, S2. Regular. ABDOMEN: Soft. EXTREMITIES: No edema. ASSESSMENT: Chronic obstructive pulmonary disease with exacerbation. PLAN: He is likely ready to go home. He will continue his daily dose of Zithromax. I will give him another 3 days of steroids, and then, he can stop that. He is safe to go home today. Job ID: [id number]
[2019-08-10] MEDS: Insulin Glargine 70 UNITS in Pre-Filled Syringe SC SCH (09:31)
--- NOTE | 2019-08-10 10:30 | DIS ---
DATE OF ADMISSION: 08/08/2019 DATE OF DISCHARGE: 08/09/2019 PRIMARY CARE PROVIDER: Kristy Sears. DISPOSITION: Discharged to home. FINAL DIAGNOSES: Acute on chronic respiratory failure with hypoxia and hypoxemia and hypercapnia, chronic obstructive pulmonary disease exacerbation, hypertension, diabetes mellitus type 2. DISCHARGE MEDICATIONS: 1. Prednisone 40 mg a day for three days. 2. Amitriptyline 100 mg a day. 3. Aspirin 81 mg a day. 4. Zithromax 250 mg a day. 5. Pristiq 100 mg a day. 6. Jardiance 10 mg a day. 7. Ferrous sulfate 325 mg a day. 8. Advair Diskus 550 one inhalation b.i.d. 9. Lasix 40 mg twice a day. 10. Gabapentin 900 mg p.o. b.i.d., 600 mg at 1500 hours. 11. Gemfibrozil 600 mg p.o. b.i.d. 12. Glimepiride 4 mg b.i.d. 13. Hydrocodone 10/325 one every 8 hours for pain. 14. NovoLog 10 mg as directed. 15. Insulin detemir 70 units subcu twice a day. 16. DuoNeb 1 inhalation q.i.d. 17. Lisinopril 2.5 mg a day. 18. Pravastatin 20 mg a day. 19. Omeprazole 20 mg twice a day. 20. Spironolactone 12.5 mg a day. 21. Spiriva 1 inhalation a day. 22. Clonidine 0.1 mg t.i.d. 23. Metformin 1000 mg twice a day. ALLERGIES: NO KNOWN DRUG ALLERGIES. DIET: Diabetic. PENDING AT TIME OF DISCHARGE: Nothing. CODE STATUS: Full. HOSPITAL COURSE: The patient presented with acute on chronic respiratory failure with hypercapnia and a pH of 7.3. The patient was evaluated in the ER. Comprehensive metabolic profile showed only a blood sugar 126. Arterial blood gas showed a pH 7.30, pCO2 of 72. White count 11.5, hemoglobin 14.2, and platelet count 299,000. Seen in consultation by Dr. Perry Koenig. His outpatient BiPAP was evaluated, found to be malfunctioning, adjusted after being placed back on his usual therapy plus some glucocorticoid. His pH came up to 7.37, CO2 dropped to 60, which is a compensated metabolic acidosis. The patient was comfortable, back to baseline. He is being discharged to home. Follow up with his PCP as indicated, follow up with Dr. Arya dash in addition to his medications. He is on nocturnal BiPAP and home O2. Job ID: [id number] MTDD
[2019-08-10 15:02] VITALS: BP 182/97; TEMP 98.4
== END 2019-08-10 12:34 | disposition home or self-care (01) | DRG 189 ==
LOC: ERS 00:21 → ERHOLD 04:11 → T4-B 15:11
PROVIDERS: ADMIT Internal Medicine; ATTEND Internal Medicine
PROC: 3E0234Z Introduction of Serum, Toxoid and Vaccine into Muscle, Percutaneous Approach (ICD-10-PCS; principal; 2019-08-10)
DX: J96.21 Acute and chronic respiratory failure with hypoxia (principal); J44.1 Chronic obstructive pulmonary disease with (acute) exacerbation; E87.2 Acidosis; Z68.42 Body mass index [BMI] 45.0-49.9, adult; Z23 Encounter for immunization; J96.22 Acute and chronic respiratory failure with hypercapnia; I10 Essential (primary) hypertension; E11.9 Type 2 diabetes mellitus without complications; E66.01 Morbid (severe) obesity due to excess calories; G47.33 Obstructive sleep apnea (adult) (pediatric); Z79.4 Long term (current) use of insulin; Z79.891 Long term (current) use of opiate analgesic; Z79.899 Other long term (current) drug therapy; Z87.891 Personal history of nicotine dependence; Z99.81 Dependence on supplemental oxygen
CPT/HCPCS: 36415; 36416; 71045; 80048; 80053; 82805; 83880; 84484; 85025; 87040; 87633; 90471; 90670; 90732; 93005; 94640; 94660; 96374; 99406; G0009; J1650; J1815; J1940; J1956; J2920; J2930; J7512; J7611; J7620

== ENCOUNTER 2019-09-02 09:18 | Outpatient (CLI) | payer MEDICARE ==
--- NOTE | 2019-09-02 10:56 | RAD ---
2 VIEWS CHEST: Date: 09/02/19 COMPARISON: 08/08/19 HISTORY: Elevated white blood cell count. FINDINGS: No pneumothorax, pleural fluid, focal consolidation, or alveolar edema. Heart and mediastinal contour s are stable. Stable prominence of the cardiac silhouette. IMPRESSION: No acute findings. POS: OFF
== END 2019-09-02 09:19 | disposition home or self-care (01) ==
LOC: RAD-FRANK 09:18
PROVIDERS: ATTEND Nurse Practitioner Family
DX: D72.828 Other elevated white blood cell count (principal)
CPT/HCPCS: 71046; 81003; 87086

== ENCOUNTER 2019-12-27 11:33 | Emergency (ER) | payer MEDICARE ==
[2019-12-27] MEDS ORDERED: Magnesium 2 GM/50 ML BAG (IN WATER) ONE (11:41)
[2019-12-27] MEDS ORDERED: methylPREDNISolone Sod Succ/PF 125 MG/2 ML VIAL ONE (11:41)
[2019-12-27] MEDS ORDERED: Albuterol Sulfate 2.5 mg/3 ml Neb ONE (11:42)
[2019-12-27] MEDS ORDERED: Albuterol Sulfate 2.5 mg/0.5 ml Neb ONE (11:42)
--- NOTE | 2019-12-27 11:57 | RAD ---
Portable frontal chest radiograph: 12/27/2019 COMPARISON: 08/08/2019 HISTORY: Shortness of breath FINDINGS: Heart and mediastinal contours are stable. There is mild atherosclerotic calcification of t he aortic arch. There is no pneumothorax or pleural fluid. No focal consolidation or alveolar edema. IMPRESSION: No focal consolidation or alveolar edema.
[2019-12-27 12:12] LABS: Reflex for Review?? YES
[2019-12-27 12:17] LABS: Band 2 % (5-11); Differential Comment Blast-Like Cell(s); Hemoglobin 12.3 g/dL (14.0-18.0); Lymphocytes 6 % (21-51); MDiff Complete? YES; Mean Corpuscular HGB CONC 31.6 g/dL (32.0-36.0); Mean Corpuscular Hemoglobin 26.7 pg (27.0-31.0); Mean Corpuscular Volume 84.5 fL (78.0-98.0); Mean Platelet Volume 9.1 fL (7.4-10.4); Platelet Count 80 thou/uL (130-400); Platelet Morphology Comment Appears Decreased; Polychromasia SLIGHT = 2-3 cells (100X) (0-2/hpf); RBC Distribution Width 18.8 % (11.5-14.5); Red Blood Cell (RBC) Count 4.59 mill/uL (4.70-6.10)
[2019-12-27 12:32] LABS: Platelet Count 80 thou/uL (130-400)
[2019-12-27 12:38] LABS: Fibrinogen 369 mg/dL (253-463)
[2019-12-27 12:39] LABS: INR-International Normal Ratio 1.1; PTT 33.8 SEC (22.9-36.1)
[2019-12-27 12:46] LABS: D-Dimer Test 10.37 *mcg/mL (0.27-0.43)
[2019-12-27 12:49] LABS: ALT (SGPT) 32 U/L (8-55); AST (SGOT) 37 U/L (5-34); Albumin 4.6 g/dL (3.4-4.8); Alkaline Phosphatase 84 U/L (40-110); Anion Gap 17 mmol/L (10-20); BUN (Urea Nitrogen) 35 mg/dL (8.4-25.7); Bilirubin, Total 0.4 mg/dL (0.2-1.2); Calc. Creatinine Clearance 0 mL/min (70-130); Calcium 9.6 mg/dL (7.8-10.44); Carbon Dioxide 32 mmol/L (23-31); Chloride 96 mmol/L (98-107); Estimated GFR-MDRD 49; Glucose 192 mg/dL (80-115); Potassium 4.3 mmol/L (3.5-5.1); Protein, Total 7.6 g/dL (5.8-8.1); Sodium 141 mmol/L (136-145)
[2019-12-27 13:07] LABS: FSP-Qualitative ABNORMAL (Normal); FSP-Semiquantitative >=20 & <40 mcg/mL (Less than 5)
--- NOTE | 2019-12-27 13:30 | CT ---
CT arteriogram chest with IV contrast and 3-D imaging HISTORY: Chest pain. Elevated d-dimer. FINDINGS: There is good contrast opacification pulmonary arteries and thoracic aorta with normal bran abram of the great vessels. Calcification within the coronary arteries and other arterial structures. Scattered areas of mild parenchymal scarring. No pleural fluid or pneumothorax. Nonenlarged, nonspeci fic lymph nodes scattered about the mediastinum. IMPRESSION: No CT evidence of pulmonary embolus. Atherosclerosis.
[2019-12-27] MEDS ORDERED: Iopamidol-370 76% 500 ML 1 ML ONE (14:32)
[2019-12-27 14:58] LABS: Phosphorus 4.4 mg/dL (2.3-4.7)
== END 2019-12-27 15:47 | disposition short-term general hospital (02) ==
LOC: ERS 11:33
DX: C95.00 Acute leukemia of unspecified cell type not having achieved remission (principal); R09.02 Hypoxemia; E11.9 Type 2 diabetes mellitus without complications; E78.5 Hyperlipidemia, unspecified; I10 Essential (primary) hypertension; J44.9 Chronic obstructive pulmonary disease, unspecified; Z87.891 Personal history of nicotine dependence; Z79.899 Other long term (current) drug therapy; Z79.4 Long term (current) use of insulin; Z79.51 Long term (current) use of inhaled steroids
CPT/HCPCS: 71045; 71275; 80053; 82550; 83605; 84100; 84484; 84550; 85025; 85049; 85060; 85300; 85362; 85379; 85384; 85610; 85730; 87040; 87077; 87149; 87186; 93005; 96361; 96365; 96375; J2930; J3475; J7611; J7620; Q9967

== ENCOUNTER 2020-01-17 11:03 | Inpatient (IN) | payer MEDICARE ==
[~2020-01-17 11:03] MED LIST changes: -ISOVUE-370 76%-LOCM 1 ML ONE; +Iopamidol-370 76% 500 ML 1 ML ONE
[2020-01-17] MEDS ORDERED: Magnesium 2 GM/50 ML BAG (IN WATER) ONE (11:47)
[2020-01-17] MEDS ORDERED: Dexamethasone 10 MG/ML VIAL ONE (11:47)
--- NOTE | 2020-01-17 11:50 | RAD ---
EXAM: XR Chest 1 View Portable PROVIDED CLINICAL HISTORY: Weakness COMPARISON: 12/27/2019 FINDINGS: Cardiac silhouette remains enlarged. Prominence of the pulmonary vasculature and pulmonary interstiti um. No focal consolidation, pleural fluid or pneumothorax apparent. IMPRESSION: Cardiomegaly and findings suggesting congestive failure.
[2020-01-17 11:55] LABS: #Lymphocytes 1.2 thou/uL (1.20-3.40); #Monocytes 0.1 thou/uL (0.11-0.59); #Neutrophils 1.5 thou/uL (1.40-6.50); %Basophils 0.8 % (0.0-1.0); %Eosinophils 0.5 % (0.0-10.0); %Monocytes 1.7 % (0.0-10.0); %Neutrophils 54.1 % (42.0-75.0); Hemoglobin 9.6 g/dL (14.0-18.0); Mean Corpuscular HGB CONC 31.8 g/dL (32.0-36.0); Mean Corpuscular Hemoglobin 27.9 pg (27.0-31.0); Mean Corpuscular Volume 87.7 fL (78.0-98.0); Mean Platelet Volume 9.2 fL (7.4-10.4); Platelet Count 169 thou/uL (130-400); RBC Distribution Width 19.3 % (11.5-14.5); Red Blood Cell (RBC) Count 3.44 mill/uL (4.70-6.10); White Blood Cell (WBC) Count 2.8 thou/uL (4.8-10.8)
[2020-01-17 11:59] LABS: Bilirubin Negative (Negative); Blood, Urine Negative (Negative); Clarity Clear (Clear); Glucose, Urine (Dipstick) >=1000 mg/dL (Negative); Leukocyte Negative Leu/uL (Negative); Nitrite Negative (Negative); Protein, Urine (Dipstick) Negative (Neg-Trace); Urobilinogen Normal mg/dL (Less than 2)
[2020-01-17 12:09] LABS: ALT (SGPT) 41 U/L (8-55); AST (SGOT) 24 U/L (5-34); Albumin 3.8 g/dL (3.4-4.8); Alkaline Phosphatase 91 U/L (40-110); Anion Gap 18 mmol/L (10-20); BUN (Urea Nitrogen) 26 mg/dL (8.4-25.7); Bilirubin, Total 0.4 mg/dL (0.2-1.2); CK (CPK) 94 U/L (30-200); Calc. Creatinine Clearance 0 mL/min (70-130); Calcium 9.2 mg/dL (7.8-10.44); Carbon Dioxide 30 mmol/L (23-31); Chloride 96 mmol/L (98-107); Estimated GFR-MDRD 54; Glucose 89 mg/dL (80-115); Lipase 12 U/L (8-78); Potassium 4.4 mmol/L (3.5-5.1); Protein, Total 6.8 g/dL (5.8-8.1); Sodium 140 mmol/L (136-145)
[2020-01-17 12:20] LABS: Band 17 % (5-11); Lymphocytes 51 % (21-51); MDiff Complete? YES; Monocytes 3 % (0-10); Neutrophil 28 % (42-75); Nucleated RBC 1 % (0); Platelet Morphology Comment Appears Adequate; Polychromasia SLIGHT = 2-3 cells (100X) (0-2/hpf); Reactive Lymphocytes 1 % (0-10)
[2020-01-17 13:02] LABS: Actual Bicarbonate (HCO3a) 33.8 mEq/L (22-28); Analyzer IN Cardio ER; Base Excess (BEa) 4.9 mEq/L (-2.0 to +3.0); Calcium, Ionized 1.19 mmol/L (1.12-1.30); Carboxyhemoglobin (COHb) 0.8 gm% (0.0-3.0); O2 Tension (PaO2) 81.9 mmHg (> 80.0); Potassium - ABG Lab 4.03 mmol/L (3.70-5.30)
[2020-01-17 13:03] LABS: CO2 Tension 81.5 mmHg (35.0-45.0); pH, Arterial 7.24 (7.35-7.45)
[2020-01-17 13:04] LABS: ALV-art Gradient 15.865 (0-20)
--- NOTE | 2020-01-17 13:17 | CT ---
CT ANGIOGRAM CHEST WITH CONTRAST: HISTORY: Pain. Elevated D-dimer. COMPARISON: CT angiogram chest 12/27/2019. FINDINGS: CT angiogram chest performed after the intravenous administration of contrast. Three-D rendering pro vided. Evaluation for embolism is limited due to delayed phase of contrast. No proximal segmental p ulmonary arterial filling defect. Reactive mediastinal lymph nodes are similar to the comparison exam. No pericardial effusion. The upper abdomen evaluation is unremarkable. The thoracic aorta contour is normal. There are patch y infiltrative opacities within the right lower lobe, predominantly of the posterior basal and medial basal segments. Mild atelectatic changes left lung base. No significant ground-glass opacities. S ome focal areas of air trapping. Mild narrowing of the celiac trunk due to the median arcuate ligament with mild post stenotic dilatat ion. Thoracic spine is intact. No acute osseous abnormality. No pneumothorax. No significant effu cassie. Bilateral dendritic gynecomastia. IMPRESSION: 1. Findings of usual typical right lower lobe pneumonia. 2. No proximal segmental pulmonary arterial filling defect. 3. Layering cholelithiasis. POS: HOME
--- NOTE | 2020-01-17 14:25 | PDOC.HHP ---
Hospitalist HPI - History of Present Illness shortness of breath History of Present Illness: This is a 69 year old male with history of COPD, hypertension, diabetes on nocturnal BIPAP and home oxygen who presented with shortness of breath. The patient is unable to give a history as to when his shortness of breath started; he claims he is not sure. He is on 4L nasal cannula at rest and on exertion and states he is compliant with his BIPAP. He denies chest pain, fevers, chills, runny nose, sore throat, recent sick contacts or travel. THe patient was evaluated by EMS, found to have an oxygen saturation of 84% on room air and was brought to the ER. The patient reports compliance with all of his medications. ED Course: In the ED, initial vitals remarkable for pulse of 109, RR 20, oxygen saturation 84% on room air. Labs notable for WBC of 2.8. Troponin less than 0.10. D-dimer was elevated, so CTA thorax done which showed right lower lobe pneumonia, no PE. ABG showed pH 7.27, pCO2 of 81.5. The patient was started on BIPAP in the emergency room. HE was also given IV vancomycin, IV levaquin, IV cefepime, 10 mg IV decadron, IV mag sulfate and IV fluid infusion. Hospitalist ROS - Review of Systems Constitutional: denies: fever, chills Respiratory: denies: cough, shortness of breath Cardiovascular: denies: chest pain, palpitations, orthopnea Gastrointestinal: denies: nausea, vomiting, abdominal pain, hematochezia Genitourinary: denies: dysuria, frequency Musculoskeletal: denies: neck pain, shoulder pain Neurological: denies: weakness, numbness - Medication Medications: Per last D/c: Amitryptyline 100 mg daily Aspirin 82 mg daily Pristiq 100 mg daily Jardiance 10 mg daily Ferrous sulfate 325 mg daily Addvair discus 550 one inhalation bid Lasix 40 mg bid Gabapentin 900 mg po bid Gemfibrozil 600 mg po bid Glimepiride 4 mg po bid Hydrocodone 10/325 mg 1 tablet every 8 hours for pain Novolong 10 mg as directed Insulin detemir 70 units SC bid Duoneb 1 inhalation qid Lisinopril 2.5 mg daily Pravastain 20 mg daily Omeprazole 20 mg bid Spironolactone 12.5 mg daily Spiriva 1 inhalation daily Clonidine 0.1 mg tid Metformin 1000 mg bid Hospitalist History - Past Medical History Other Medical History: Hypertension Type II diabetes COPD Hyperlipidemia - Past Surgical History Other Surgical History: Tonsillectomy 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 - Family History Other Family History: NO history of lung problems in the family that he is aware of - Social History Smoking Status: Former smoker (unable to state when he quit smoking) Alcohol: reports: None - Exam General Appearance: NAD, awake alert General - other findings: obese Eye: PERRL, anicteric sclera ENT: normocephalic atraumatic, no oropharyngeal lesions Neck: no JVD Heart: RRR, no murmur, no gallops, no rubs Respiratory - other findings: diffusely diminished breath sounds Gastrointestinal - other findings: abdomen firm to palpation, very distended, hypoactive BS Extremities: no cyanosis, no clubbing, 2+ LE edema Skin: normal turgor, no lesions, no rashes Neurological: cranial nerve grossly intact, normal sensation to touch, no focal deficits, no new deficit Hospitalist Results - Labs Result Diagrams: 01/17/20 11:19 01/17/20 11:19 Lab results: WBC 2.8 thou/uL (4.8-10.8) L 01/17/20 11:19 Hgb 9.6 g/dL (14.0-18.0) L 01/17/20 11:19 Hct 30.1 % (42.0-52.0) L 01/17/20 11:19 MCV 87.7 fL (78.0-98.0) 01/17/20 11:19 Plt Count 169 thou/uL (130-400) 01/17/20 11:19 Neutrophils % 54.1 % (42.0-75.0) 01/17/20 11:19 Band Neuts % (Manual) 17 % (5-11) H 01/17/20 11:19 ABG pH 7.24 (7.35-7.45) L* 01/17/20 13:00 ABG pCO2 81.5 mmHg (35.0-45.0) H* 01/17/20 13:00 ABG pO2 81.9 mmHg (> 80.0) H 01/17/20 13:00 Sodium 140 mmol/L (136-145) 01/17/20 11:19 Potassium 4.4 mmol/L (3.5-5.1) 01/17/20 11:19 Chloride 96 mmol/L (98-107) L 01/17/20 11:19 Carbon Dioxide 30 mmol/L (23-31) 01/17/20 11:19 BUN 26 mg/dL (8.4-25.7) H 01/17/20 11:19 Creatinine 1.32 mg/dL (0.7-1.3) H 01/17/20 11:19 Glucose 89 mg/dL (80-115) 01/17/20 11:19 Lactic Acid 1.1 mmol/L (0.5-2.2) 01/17/20 11:19 Calcium 9.2 mg/dL (7.8-10.44) 01/17/20 11:19 Total Bilirubin 0.4 mg/dL (0.2-1.2) 01/17/20 11:19 AST 24 U/L (5-34) 01/17/20 11:19 ALT 41 U/L (8-55) 01/17/20 11:19 Alkaline Phosphatase 91 U/L (40-110) 01/17/20 11:19 Creatine Kinase 94 U/L (30-200) 01/17/20 11:19 Troponin I Less than 0.010 ng/mL (< 0.028) 01/17/20 11:19 B-Natriuretic Peptide 86.9 pg/mL (0-100) 01/17/20 11:19 Serum Total Protein 6.8 g/dL (5.8-8.1) 01/17/20 11:19 Albumin 3.8 g/dL (3.4-4.8) 01/17/20 11:19 Lipase 12 U/L (8-78) 01/17/20 11:19 Urine Ketones Negative mg/dL (Negative) 01/17/20 11:35 Urine Blood Negative (Negative) 01/17/20 11:35 Urine Nitrite Negative (Negative) 01/17/20 11:35 Ur Leukocyte Esterase Negative Christin/uL (Negative) 01/17/20 11:35 - EKG Interpretation EKG: sinus tachycardia with premature atrial complexes Hospitalist H&P A/P - Plan Plan: CTA: right lower lobe pneumonia. No PE. Layering cholelithiasis EKG: sinus tachycardia with premature atrial complexes Chest X ray: cardiomegaly + CHF This is a 69 year old female with past medical history of COPD, hypertension, diabetes who presented with shortness of breath, found to have RLL pneumonia #Acute hypoxic/hypercapneic respiratory failure secondary to pneumonia and COPD exacerbation - continue IV vancomycin, cefepime and levaquin. Pending blood cultures - CTA negative for PE. BNP negative - continue BIPAP due to hypercapnea - admit to IMCU - trend troponin x 3 - pulm consult #Anemia #Leukopenia - WBC low, Hb 9 - will check iron panel in the am #Abdominal distension - very firm to palpation, hypoactive bowel sounds. - will check CT abdomen #Hypertension - currently controlled - will hold meds for now and resume if hypertensives #Peripheral edema - will check an ECHO, none on file #Type II diabetes - insulin sliding scale - hold outpatient medications for now #Depression - continue desvenlafaxine DVT prophylaxis: lovenox Code status: full code
[2020-01-17] MEDS ORDERED: Ipratropium Oral Inhaler INH PRN (14:40)
[2020-01-17] MEDS ORDERED: Dextrose 50% Abboject 50 ML SYRINGE SLOW IVP PRN (14:42)
[2020-01-17] MEDS ORDERED: Dextrose 5% in Water 1,000 ML IV PRN (14:42)
[2020-01-17] MEDS ORDERED: HYDROcodone/Acetaminophen 10/325 mg Tablet PO PRN (14:43)
[2020-01-17] MEDS ORDERED: Cefepime 2 GM VIAL ONE ×2 (14:51→14:52)
[2020-01-17 15:28] LABS: Anion Gap 13 mmol/L (10-20); BUN (Urea Nitrogen) 24 mg/dL (8.4-25.7); Calc. Creatinine Clearance 0 mL/min (70-130); Calcium 9.4 mg/dL (7.8-10.44); Carbon Dioxide 33 mmol/L (23-31); Chloride 96 mmol/L (98-107); Estimated GFR-MDRD 61; Glucose 115 mg/dL (80-115); Potassium 4.5 mmol/L (3.5-5.1); Sodium 137 mmol/L (136-145)
--- NOTE | 2020-01-17 15:42 | CT ---
CT ABDOMEN AND PELVIS WITHOUT IV CONTRAST: HISTORY: Abdominal distention. FINDINGS: Absence of oral and IV contrast reduces the sensitivity of the exam, particularly for evaluation of s olid organs involved. There is contrast in the ureters and urinary bladder from the earlier CTA of c hest performed at 12:43 p.m. There are bibasilar infiltrates, right greater than left. The spleen is enlarged measuring 17.5 cm. There are tiny layering gallstones. No free air or free fluid is seen in the abdomen or pelvis. Th ere are vascular calcifications without evidence of aneurysmal dilatation of the abdominal aorta. Th ere are degenerative changes in the spine. No hydroureteral nephrosis is seen on either side. There is a suggestion of a 9 mm cyst in the left renal cortex. The small bowel loops are not abnormally dilated. There is fecal material in the colon. Fat-contain ing bilateral inguinal hernias are present. IMPRESSION: 1. Bibasilar infiltrates. 2. Cholelithiasis. 3. Splenomegaly. 4. No evidence of high-grade urinary tract or small bowel obstruction. POS: [facility]
[2020-01-17 16:21] VITALS: BMI 47.0
[2020-01-17] MEDS ORDERED: Albuterol Sulfate 2.5 mg/3 ml Neb NEB PRN (18:00)
[2020-01-17] MEDS: Furosemide 40 MG TAB PO SCH (18:05)
[2020-01-17] MEDS: cloNIDine 0.1 MG TAB PO SCH ×2 (18:05→20:30)
[2020-01-17] MEDS: methylPREDNISolone Sod Succ 40 MG VIAL IVP SCH (18:07)
[2020-01-17] MEDS ORDERED: Bacteriostatic Water 30 ML VIAL FS PRN (18:19)
[2020-01-17] MEDS: Mometasone 200 MCG/Formoterol 5 MCG 120 PUFF INHALER INH SCH (18:37)
[2020-01-17] MEDS: Vancomycin 1 GM in Premix Bag 1 BAG IVPB SCH (20:29)
[2020-01-17] MEDS: Gabapentin 300 MG CAP PO SCH (20:29)
[2020-01-17] MEDS: Amitriptyline HCl 100 MG TAB PO SCH (20:30)
[2020-01-17] MEDS: guaiFENesin ER 600 MG TAB PO SCH (20:30)
[2020-01-17] MEDS: Simvastatin 5 MG TAB PO SCH (20:30)
[2020-01-17] MEDS: HumaLOG 300 UNITS/3 ML VIAL SC PRN (20:36)
[2020-01-18] MEDS: methylPREDNISolone Sod Succ 40 MG VIAL IVP SCH ×5 (00:22→23:41)
[2020-01-18] MEDS: Cefepime 2 GM in Sodium Chloride 0.9% 100 ML IVPB SCH ×2 (03:22→16:03)
[2020-01-18 04:16] LABS: Hemoglobin 9.2 g/dL (14.0-18.0); Mean Corpuscular HGB CONC 32.9 g/dL (32.0-36.0); Mean Corpuscular Volume 88.2 fL (78.0-98.0); Mean Platelet Volume 9.1 fL (7.4-10.4); Platelet Count 157 thou/uL (130-400); RBC Distribution Width 19.3 % (11.5-14.5); Red Blood Cell (RBC) Count 3.16 mill/uL (4.70-6.10); White Blood Cell (WBC) Count 2.3 thou/uL (4.8-10.8)
[2020-01-18 04:27] LABS: Iron 67 ug/dL (65-175); Iron Binding Capacity, Total 254 mcg/dL (261-462)
[2020-01-18 04:29] LABS: Anion Gap 17 mmol/L (10-20); BUN (Urea Nitrogen) 30 mg/dL (8.4-25.7); Calc. Creatinine Clearance 107 mL/min (70-130); Calcium 9.6 mg/dL (7.8-10.44); Carbon Dioxide 31 mmol/L (23-31); Chloride 97 mmol/L (98-107); Estimated GFR-MDRD 59; Glucose 248 mg/dL (80-115); Iron 64 ug/dL (65-175); Iron Binding Capacity, Total 258 mcg/dL (261-462); Potassium 4.5 mmol/L (3.5-5.1); Sodium 140 mmol/L (136-145)
[2020-01-18] MEDS: Furosemide 40 MG TAB PO SCH ×2 (06:38→14:07)
[2020-01-18] MEDS: HumaLOG 300 UNITS/3 ML VIAL SC PRN ×4 (06:39→20:37)
[2020-01-18] MEDS: Mometasone 200 MCG/Formoterol 5 MCG 120 PUFF INHALER INH SCH ×2 (06:47→18:30)
[2020-01-18] MEDS: cloNIDine 0.1 MG TAB PO SCH ×3 (09:53→20:37)
[2020-01-18] MEDS: Enoxaparin Sodium 40 MG/0.4 ML SYRINGE SC SCH (09:53)
[2020-01-18] MEDS: Aspirin 81 mg Enteric Coated Tablet PO SCH (09:54)
[2020-01-18] MEDS: Gabapentin 300 MG CAP PO SCH ×3 (09:54→20:37)
[2020-01-18] MEDS: guaiFENesin ER 600 MG TAB PO SCH ×2 (09:54→20:37)
[2020-01-18] MEDS: Ferrous Sulfate 325 MG TAB PO SCH (09:54)
[2020-01-18] MEDS: Vancomycin 1 GM in Premix Bag 1 BAG IVPB SCH ×2 (09:55→20:36)
[2020-01-18] MEDS: Venlafaxine HCl XR 150 MG CAP PO SCH (09:57)
--- NOTE | 2020-01-18 10:26 | CON ---
DATE OF CONSULTATION: 01/18/2020 This is 70 minutes of time, of that time greater than 50% was spent with the patient and/or the patient's unit in the hospital. Also, a conversation with the patient's and patient's daughter concerning his care. HISTORY OF PRESENT ILLNESS: Mr. Miller is a 69-year-old male, whom I have known for many years. He has end-stage COPD and is requiring Trilogy ventilator at home for respiratory support. He came to the hospital with altered mental status. I am told he was recently diagnosed with acute lymphocytic leukemia and got a dose of chemotherapy there. Today, he is a little more oriented than he was yesterday. He is complaining of pain in both of his feet from his neuropathy and demanding pain medication. PAST MEDICAL HISTORY: 1. Severe chronic obstructive pulmonary disease. 2. LINDA. 3. Morbid obesity. 4. Diabetes mellitus. 5. Hypertension. 6. Acute lymphocytic leukemia. PAST SURGICAL HISTORY: Left knee surgery. FAMILY MEDICAL HISTORY: Remarkable for coronary artery disease. SOCIAL HISTORY: Quit smoking in 2010. Does not smoke now. Does not use illicit drugs. Does not consume alcohol. ALLERGIES: NONE. MEDICATIONS: These were reviewed. They are listed under the home medication section of the [employer]. Of note, 1. He is on prednisone 40 mg daily. 2. He is also on azithromycin 250 mg daily, which has helped him avoid COPD exacerbations. His current inpatient medications include; 1. Methylprednisolone. 2. Cefepime. 3. Levaquin, as well as vancomycin. REVIEW OF SYSTEMS: Remarkable for failure to thrive, pain in his feet, obesity, falling spells. Otherwise, 12-point review of systems negative. PHYSICAL EXAMINATION: VITAL SIGNS: Temperature 96.7, pulse 80, blood pressure 143/74, O2 saturation 100%. GENERAL: He is sitting in a chair, awake, alert, in no distress. HEENT: Unremarkable. NECK: No adenopathy or JVD. LUNGS: Clear without wheezing or rhonchi. CARDIAC: S1, S2. Regular. ABDOMEN: Morbidly obese, soft, nontender. EXTREMITIES: No clubbing, cyanosis, or edema. LABORATORY DATA: White blood cell count 2.3, hematocrit 27.9, platelet count 157. Sodium 140, potassium 4.5, chloride 97, CO2 of 31, BUN 30, creatinine 1.2, glucose 248. ABG at the time of admission; pH of 7.24, pCO2 of 81, PO2 of 82. His x-ray and CT really did not show much pathology in the lungs other than some fluid. ASSESSMENT: 1. Acute lymphocytic leukemia. The patient has probably been suffering from the side effects and perhaps infection related to chemotherapy. 2. End-stage chronic obstructive pulmonary disease. 3. Obstructive sleep apnea. 4. Morbid obesity. 5. Multiple other medical problems. PLAN: I discussed with the patient, his , and his daughter. In my opinion, Mr. Miller probably should not be receiving chemotherapy. His comorbidities are probably going to limit how well he can tolerate chemotherapy. I would advise moving more towards palliative care hospice type situation and not treating the ALL. I have reviewed the medications on the chart. Agree with current management otherwise. I have encouraged family to pursue DNR status. Palliative Care input would be helpful. Job ID: [id number]
--- NOTE | 2020-01-18 12:56 | CON ---
DATE OF CONSULTATION: REASON FOR CONSULTATION: Acute lymphoblastic leukemia. HISTORY OF PRESENT ILLNESS: Mr. Miller is a 69-year-old gentleman with end-stage COPD, who was recently diagnosed with acute lymphoblastic leukemia. He was hospitalized at [facility] in [place] from December 26 to January 11. He is a patient of Dr. Muse. He had a cycle 1 of reduced dose chemotherapy consisting of cyclophosphamide, vincristine, mesna, and methotrexate. He also received Neulasta injection. He apparently was discharged on the , and over the last several days, has been running a low-grade fever, had extreme weakness and fatigue, body shakes, some confusion and difficulty standing. He has had 2 falls. He was brought by his family to the ER. He had a CAT scan of his abdomen and pelvis, which showed bibasilar infiltrates, splenomegaly, and cholelithiasis. He had a CT angio, which showed right lower lobe pneumonia. No pulmonary emboli. He was admitted in the IMCU. His white count on arrival was 2.8 with 28% neutrophils and 17% bands. He was started on antibiotics. Dr. Koenig has seen the patient, who is his selling manager. He was sitting at bedside eating his lunch and had no specific complaints. He continues to have tremors, but no fever. He has been on prophylactic Cipro, allopurinol, and fluconazole since discharge from [facility]. PAST MEDICAL HISTORY: 1. Newly-diagnosed acute lymphoblastic leukemia. 2. Diabetes mellitus type 2. 3. End-stage COPD. 4. Obstructive sleep apnea. 5. Hypertension. 6. Hyperlipidemia. PAST SURGICAL HISTORY: MediPort placement. ALLERGIES: NO KNOWN DRUG ALLERGIES. HOME MEDICATIONS: 1. Cipro daily. 2. Allopurinol 300 b.i.d. 3. Protonix daily. 4. Fluconazole 200 mg b.i.d. 5. Prednisone 40 mg daily. 6. Azithromycin 250 mg daily as well as multiple other medications noted in [employer]. FAMILY HISTORY: Noncontributory. SOCIAL HISTORY: . Lives with his spouse. Prior history of smoking. REVIEW OF SYSTEMS: Positive for weakness, shortness of breath, and tremors. Otherwise, 10-point review of systems is negative. PHYSICAL EXAMINATION: VITAL SIGNS: Temperature is 97.2, pulse is 79, respiratory rate is 26, blood pressure is 159/81, and he is 99% on 4 L. GENERAL: Chronically ill-appearing male, in no acute distress. HEENT: Normocephalic, atraumatic. He is hard of hearing. NECK: Supple. CV: Regular rate and rhythm. LUNGS: Diminished throughout. ABDOMEN: Obese. EXTREMITIES: He has 2+ bilateral lower extremity edema. SKIN: Scattered bruising. No rash. NEUROLOGIC: Nonfocal. PERTINENT LABORATORY DATA AND IMAGING STUDIES: Current WBCs are 2.3, hemoglobin 9.2, hematocrit 27.9, and platelet count is 157,000, 54% neutrophils, 51% lymphocytes. Sodium is 140, potassium is 4.5, chloride is 97, CO2 is 31, BUN is 30, creatinine is 1.23, glucose is 393, calcium is 9.6, bilirubin is 0.4, AST is 24, ALT is 41, alkaline phosphatase is 91. Troponin is negative. Serum total protein 6.8, albumin 3.8, globulin 3.0. ASSESSMENT: 1. Acute lymphoblastic leukemia, status post cycle 1 of reduced dose chemotherapy with Neulasta support. 2. End-stage chronic obstructive pulmonary disease exacerbation. 3. Poorly-controlled diabetes mellitus. 4. Leukopenia from chemotherapy. DISCUSSION: The patient did receive Neulasta on January 11, expect his white count to improve in the next 24 to 48 hours. He is on empiric antibiotics for possible pneumonia. Dr. Koenig has discussed code status with the patient as well as moving forward with any further chemotherapy. We will leave that decision to his doctors at [facility], who were familiar with him. We have never seen this patient in the clinic. There was some discussion with Dr. Muse in [place], if we could do his labs here, so he would not have to drive and we will be happy to do that and we will discuss him with Dr. Graf. There are no acute recommendations for me at this time other than to monitor his CBC as it should improve over the next few days. Thank you for the consult. Job ID: [id number]
[2020-01-18] MEDS ORDERED: Insulin Glargine 50 UNITS in Pre-Filled Syringe 1 EACH SC SCH (13:15)
[2020-01-18] MEDS ORDERED: HYDROcodone/Acetaminophen 10/325 mg Tablet PO PRN (13:45)
--- NOTE | 2020-01-18 14:55 | PDOC.HOSPP ---
- Subjective Encounter Date: 01/18/20 Encounter Time: 10:00 Subjective: The patient is doing much better. He is back down to 2L nasal cannula. left a note that patient has been falling frequently at home. She also states he had some low grade fever and has been having confusion lately. Patient noted to have short term memory loss per nursing Pt states cough has improved and shortness of breath has improved. He denies back pain but has some pain in his legs and weakness Patient's reports patient has history of ALL. He received chemotherapy earlier this month and neulasta a few weeks ago - Objective Vital Signs & Weight: Vital Signs (12 hours) Temp Pulse Resp BP Pulse Ox 01/18/20 14:46 74 23 H 100 01/18/20 14:06 143/84 H 01/18/20 11:19 97.2 F L 01/18/20 10:38 79 26 H 99 01/18/20 09:53 143/84 H 01/18/20 08:00 96 01/18/20 07:14 96.7 F L 01/18/20 06:45 80 21 H 97 01/18/20 03:34 97.4 F L Weight Weight 291 lb Most Recent Monitor Data Heart Rate from ECG 80 NIBP 116/76 NIBP BP-Mean 89 Respiration from ECG 21 SpO2 96 I&O: 01/17/20 01/18/20 01/19/20 06:59 06:59 06:59 Intake Total 1690 Output Total 1800 400 Balance -110 -400 Result Diagrams: 01/18/20 03:27 01/18/20 03:27 Additional Labs: Accuchecks 01/18/20 01/18/20 01/17/20 11:03 05:35 20:06 POC Glucose 393 H 332 H 363 H Hospitalist ROS - Review of Systems Constitutional: denies: fever, chills - Medication Medications: Active Medications Generic Name Dose Route Start Last Admin Trade Name Freq PRN Reason Stop Dose Admin Hydrocodone Bitart/Acetaminophen 1 tab 01/18/20 13:45 01/18/20 14:07 Duncan 10/325 PO 1 tab Q4H PRN Administration Pain Albuterol/Ipratropium 3 ml 01/17/20 18:30 01/18/20 14:46 Duoneb IPPB 3 ml [id number] VIELKA Administration Amitriptyline HCl 100 mg 01/17/20 21:00 01/17/20 20:30 Elavil PO 100 mg HS VIELKA Administration Aspirin 81 mg 01/18/20 09:00 01/18/20 09:54 Ecotrin PO 81 mg DAILY VIELKA Administration Clonidine 0.1 mg 01/17/20 15:00 01/18/20 14:06 Catapres PO 0.1 mg TID VIELKA Administration Enoxaparin Sodium 40 mg 01/18/20 09:00 01/18/20 09:53 Lovenox SC 40 mg 0900 VIELKA Administration Ferrous Sulfate 325 mg 01/18/20 09:00 01/18/20 09:54 Feosol PO 325 mg DAILY VIELKA Administration Furosemide 40 mg 01/17/20 15:00 01/18/20 14:07 Lasix PO 40 mg 06,15 VIELKA Administration Gabapentin 600 mg 01/18/20 15:00 01/18/20 14:07 Neurontin PO 600 mg 1500 VIELKA Administration Gabapentin 900 mg 01/17/20 21:00 01/18/20 09:54 Neurontin PO 900 mg BID VIELKA Administration Guaifenesin 600 mg 01/17/20 21:00 01/18/20 09:54 Mucinex PO 600 mg Q12HR VIELKA Administration Vancomycin HCl 1 gm/ Device 200 mls @ 200 mls/hr 01/17/20 21:00 01/18/20 09: 55 IVPB 200 mls Q12HR VIELKA Administration Cefepime HCl 2 gm/ Sodium 100 mls @ 200 mls/hr 01/18/20 03:00 01/18/20 03:22 Chloride IVPB 100 mls 0300,1500 VIELKA Administration Levofloxacin 750 mg/ Device 150 mls @ 100 mls/hr 01/18/20 14:00 01/18/20 14: 06 IVPB 150 mls Q24HR VIELKA Administration Insulin Glargine 50 units/ 0.5 mls @ 0 mls/hr 01/18/20 13:15 01/18/20 14:06 Miscellaneous Medication SC 01/18/20 15:15 0.5 mls NOW VIELKA Administration Insulin Human Lispro 0 units 01/17/20 14:42 01/18/20 11:37 Humalog SC 6 unit .MILD SLIDING SCALE PRN Administration Mild Correctional Scale Methylprednisolone Sodium Succinate 40 mg 01/17/20 18:00 01/18/20 12:08 Solu-Medrol IVP 40 mg Q6HR VIELKA Administration Mometasone Furoate/Formoterol Fumar 2 puff 01/17/20 18:30 01/18/20 06:47 Dulera 200 Mcg/5 Mcg Inhaler INH 2 puff BID-RT VIELKA Administration Simvastatin 10 mg 01/17/20 21:00 01/17/20 20:30 Zocor PO 10 mg HS VIELKA Administration Venlafaxine HCl 150 mg 01/18/20 09:00 01/18/20 09:57 Effexor Xr PO 150 mg DAILY VIELKA Administration - Exam General Appearance: NAD, awake alert Eye: PERRL, anicteric sclera ENT: normocephalic atraumatic, no oropharyngeal lesions Neck: no JVD Heart: RRR, no murmur, no gallops, no rubs Respiratory: CTAB, no rales, no ronchi Respiratory - other findings: mild wheezing Gastrointestinal: soft Gastrointestinal - other findings: abdomen very distended Extremities: no cyanosis, no clubbing, 1+ LE edema Skin: normal turgor, no lesions, no rashes Hosp A/P - Plan CT abdomen: bibasilar infiltrate, cholelithiasis, splenomegaly. CTA: right lower lobe pneumonia. No PE. Layering cholelithiasis EKG: sinus tachycardia with premature atrial complexes Chest X ray: cardiomegaly + CHF This is a 69 year old female with past medical history of COPD, hypertension, diabetes who presented with shortness of breath, found to have RLL pneumonia #Acute hypoxic/hypercapneic respiratory failure secondary to pneumonia and COPD exacerbation - continue IV vancomycin, cefepime and levaquin. Pending blood cultures, check MRSA swab - continue IV steroids, but taper to 20 mg IV q6 hours - CTA negative for PE. BNP negative - continue BIPAP at night and 4L at home - troponin x 2 negative #History of ALL - patient needs to follow up with his oncologist in [place] #Anemia of chronic disease #Leukopenia - stable, continue to monitor #Splenomegaly - secondary to ALL -noted on CT abdomen. oncology follow up #Hypertension - currently controlled - will hold meds for now and resume if hypertensives #Peripheral edema - ECHO pending - check bilateral dopplers to rule out DVT #Type II diabetes - insulin sliding scale. Will resume lantus 50 units hold outpatient medications for now - taper steroids #Depression - continue desvenlafaxine DVT prophylaxis: lovenox
--- NOTE | 2020-01-18 15:05 | PDOC.FMACP ---
Advance Care Planning - Note Participants: patient Summary: Advanced Care Planning was discussed. The diagnosis, prognosis and goals of care were discussed. Appropriate forms and documentation to accomplish the goals of care were discussed. All questions were answered. The Palliative Care Team will be engaged to assist with completion of any outstanding forms that are needed. Patient wants to be a full code , spent 30 min face to face with patient
--- NOTE | 2020-01-18 16:18 | ULT ---
DOPPLER VENOUS ULTRASOUND OF BOTH LOWER EXTREMITIES: 01/18/20 INDICATION: History of acute lymphocytic leukemia with bilateral lower extremity edema. TECHNIQUE: Chacon scale, color Doppler, and vascular duplex with spectral analysis was performed of the deep venou s structures of both lower extremities. The common femoral vein, superficial femoral vein, popliteal vein, posterior tibial vein, proximal greater saphenous, and proximal profunda veins were assessed bi laterally. FINDINGS: There is normal compression, normal flow and augmentation seen within the deep venous structures of b h lower extremities. IMPRESSION: No acute DVT in both lower extremities. POS: BH
[2020-01-18] MEDS: Simvastatin 5 MG TAB PO SCH (20:36)
[2020-01-18] MEDS: Amitriptyline HCl 100 MG TAB PO SCH (20:37)
[2020-01-19] MEDS: Cefepime 2 GM in Sodium Chloride 0.9% 100 ML IVPB SCH ×2 (02:29→14:43)
[2020-01-19 03:55] LABS: #Lymphocytes 0.4 thou/uL (1.20-3.40); #Neutrophils 2.8 thou/uL (1.40-6.50); %Eosinophils 0.1 % (0.0-10.0); %Lymphocytes 12.4 % (21.0-51.0); %Monocytes 0.9 % (0.0-10.0); %Neutrophils 86.6 % (42.0-75.0); Hemoglobin 8.4 g/dL (14.0-18.0); Mean Corpuscular HGB CONC 33.3 g/dL (32.0-36.0); Mean Corpuscular Hemoglobin 29.5 pg (27.0-31.0); Mean Corpuscular Volume 88.4 fL (78.0-98.0); Mean Platelet Volume 8.7 fL (7.4-10.4); Platelet Count 176 thou/uL (130-400); RBC Distribution Width 19.5 % (11.5-14.5); Red Blood Cell (RBC) Count 2.85 mill/uL (4.70-6.10); White Blood Cell (WBC) Count 3.2 thou/uL (4.8-10.8)
[2020-01-19 04:13] LABS: Anion Gap 13 mmol/L (10-20); BUN (Urea Nitrogen) 31 mg/dL (8.4-25.7); Calc. Creatinine Clearance 118 mL/min (70-130); Calcium 8.9 mg/dL (7.8-10.44); Carbon Dioxide 35 mmol/L (23-31); Chloride 97 mmol/L (98-107); Estimated GFR-MDRD 65; Glucose 275 mg/dL (80-115); Potassium 4.5 mmol/L (3.5-5.1); Sodium 140 mmol/L (136-145)
[2020-01-19] MEDS: Furosemide 40 MG TAB PO SCH ×2 (05:30→14:45)
[2020-01-19] MEDS: methylPREDNISolone Sod Succ 40 MG VIAL IVP SCH (05:30)
[2020-01-19] MEDS: HumaLOG 300 UNITS/3 ML VIAL SC PRN ×2 (05:31→11:01)
[2020-01-19] MEDS: Mometasone 200 MCG/Formoterol 5 MCG 120 PUFF INHALER INH SCH (06:45)
[2020-01-19 08:48] LABS: Vancomycin, Trough 12.1 ug/mL
[2020-01-19] MEDS ORDERED: Vancomycin 1.5 GRAM/300 ML BAG 1.5 GM in Premix Bag 1 BAG IVPB SCH ×2 (09:45→21:00)
[2020-01-19] MEDS: Enoxaparin Sodium 40 MG/0.4 ML SYRINGE SC SCH (10:32)
[2020-01-19] MEDS: cloNIDine 0.1 MG TAB PO SCH ×2 (10:33→14:43)
[2020-01-19] MEDS: guaiFENesin ER 600 MG TAB PO SCH (10:33)
[2020-01-19] MEDS: Venlafaxine HCl XR 150 MG CAP PO SCH (10:33)
[2020-01-19] MEDS: Ferrous Sulfate 325 MG TAB PO SCH (10:33)
[2020-01-19] MEDS: Gabapentin 300 MG CAP PO SCH ×2 (10:33→14:43)
[2020-01-19] MEDS: Aspirin 81 mg Enteric Coated Tablet PO SCH (10:34)
--- NOTE | 2020-01-19 10:34 | PRG ---
DATE OF SERVICE: 01/19/2020 SUBJECTIVE: Mr. Miller remains on noninvasive ventilation. He says he feels better. OBJECTIVE: VITAL SIGNS: Temperature 96.1, pulse 68, blood pressure 133/65, O2 saturation 97%. Intake 2830, output 2000. HEENT: Unremarkable. NECK: No adenopathy or JVD. LUNGS: Generalized poor air movement. CARDIAC: S1, S2. Regular. ABDOMEN: Soft. EXTREMITIES: Edematous. LABORATORY DATA: White blood cell count 3.2, hematocrit 25.2, and platelet count 176. Sodium 140, potassium 4.5, chloride 97, CO2 of 35, BUN 31, creatinine 1.1, glucose 275. ASSESSMENT: 1. Acute lymphocytic leukemia. 2. [id number]-qg-[id number] respiratory failure, requiring noninvasive mechanical ventilation. 3. End-stage chronic obstructive pulmonary disease. 4. Diabetes mellitus. PLAN: I doubt that the patient will ever significantly improve back to his baseline. His prognosis is terrible from the acute lymphocytic leukemia. From a respiratory standpoint, we will continue the antibiotics. He is on IV Lasix and IV steroids. Continue noninvasive ventilation as needed. I have talked with the family regarding code status, they are still contemplating. I think all providers need to speak with the [employer] with the family and tell them that the patient's prognosis is poor and not to encourage further aggressive therapy. Job ID: [id number]
[2020-01-19] MEDS: Vancomycin 1 GM in Premix Bag 1 BAG IVPB SCH (10:36)
--- NOTE | 2020-01-19 11:09 | PDOC.MOPN ---
Interval History: resting with CPAP on. - Vital Signs Vital Signs: Vital Signs (12 hours) Temp Pulse Resp Pulse Ox 01/19/20 11:04 64 13 95 01/19/20 08:00 99 01/19/20 07:21 96.1 F L 01/19/20 06:48 98 01/19/20 06:47 68 17 98 01/19/20 06:45 68 17 95 01/19/20 04:04 98.3 F 01/19/20 02:09 68 21 H 01/18/20 23:44 98.0 F Weight Weight 291 lb Most Recent Monitor Data Heart Rate from ECG 68 NIBP 133/65 NIBP BP-Mean 87 Respiration from ECG 16 SpO2 97 - Physical Exam General: No acute distress Lungs: Other (diminished) Cardiovascular: Regular rate Abdomen: Normal bowel sounds Neurological: Normal speech - Labs Result Diagrams: 01/19/20 03:44 01/19/20 03:44 Lab results: Laboratory Results - last 24 hr 01/19/20 08:17: Vancomycin Trough 12.1 01/19/20 05:33: POC Glucose 358 H 01/19/20 03:44: WBC 3.2 L, RBC 2.85 L, Hgb 8.4 L, Hct 25.2 L, MCV 88.4, MCH 29.5 , MCHC 33.3, RDW 19.5 H, Plt Count 176, MPV 8.7, Neutrophils % 86.6 H, Lymphocytes % 12.4 L, Monocytes % 0.9, Eosinophils % 0.1, Basophils % 0.0, Neutrophils # 2.8, Lymphocytes # 0.4 L, Monocytes # 0.0 L, Eosinophils # 0.0, Basophils # 0.0 01/19/20 03:44: Sodium 140, Potassium 4.5, Chloride 97 L, Carbon Dioxide 35 H, Anion Gap 13, BUN 31 H, Creatinine 1.12, Estimated GFR (MDRD) 65, Glucose 275 H , Calcium 8.9 01/18/20 20:37: POC Glucose 373 H 01/18/20 17:11: POC Glucose 285 H 01/18/20 11:03: POC Glucose 393 H Status: lab reviewed by me A/P - Problem (1) Acute lymphoblastic leukemia (ALL) Current Visit: Yes Code(s): C91.00 - ACUTE LYMPHOBLASTIC LEUKEMIA NOT HAVING ACHIEVED REMISSION Status: Acute (2) Acute on chronic respiratory failure with hypoxia and hypercapnia Current Visit: No Code(s): J96.21 - ACUTE AND CHRONIC RESPIRATORY FAILURE WITH HYPOXIA; J96.22 - ACUTE AND CHRONIC RESPIRATORY FAILURE WITH HYPERCAPNIA Status: Acute (3) COPD exacerbation Current Visit: No Code(s): J44.1 - CHRONIC OBSTRUCTIVE PULMONARY DISEASE W ( ACUTE) EXACERBATION Status: Acute - Plan Plan: 1. disscussed with family yesterday that he is likely to do poorly with chemo. Encouraged to speak with Dr. Pleitez in [place] about further treatment. asked if he could get treatment here and was told that all chemo must be done in [place]. 2. WBC improved, continue to monitor 3. Recommend PCT consult for advanced directives. Patient a full code at this time.
[2020-01-19 12:32] VITALS: BP 145/81
[2020-01-19 15:17] VITALS: TEMP 96.1
--- NOTE | 2020-01-19 16:37 | DIS ---
DATE OF ADMISSION: 01/17/2020 DATE OF DISCHARGE: 01/19/2020 DISCHARGE DIAGNOSES: Acute hypoxic and hypercapnic respiratory failure secondary to pneumonia and chronic obstructive pulmonary disease exacerbation, history of amyotrophic lateral sclerosis, anemia of chronic disease, leukopenia, splenomegaly, peripheral edema. CONSULTATIONS: Dr. Perry Koenig with Pulmonary/Critical Care; Elana Spivey NP , with Oncology. PROCEDURES: none BRIEF HISTORY OF PRESENT ILLNESS: This is a 69-year-old male with a past medical history of an ALL, COPD, hypertension, diabetes, on nocturnal BiPAP and home oxygen, who presented with shortness of breath. The patient was unable to give a history as to when his shortness of breath started. He reported compliance with his oxygen and his BiPAP. He was found to have an oxygen saturation of 84% on room air and brought to the ER. Labs are notable for white count of 2.8. D-dimer is elevated, so CTA thorax was done, which showed right lower lobe pneumonia. His blood gas showed a pH of 7.27 and a pCO2 of 81.5. He was started on BiPAP and admitted. He was started on IV vancomycin, Levaquin, cefepime, and steroids and admitted to the [facility]. HOSPITAL COURSE: Acute hypoxic and hypercapnic respiratory failure secondary to pneumonia and COPD exacerbation: The patient was continued on broad-spectrum antibiotics. He was started on IV steroids as well. Blood cultures were negative. He had troponins that were drawn, which were negative x2. ECHO done on the showed an EF of 55% to 60% with no wall motion abnormalities. He did well and was weaned over to oral steroid. He will be discharged with Levaquin and cefepime for 5 more days to complete a 7-day course of antibiotics. The patient is currently back on his baseline oxygen of 4 L nasal cannula and he is to wear BIPAP at night. He was seen by Physical Therapy per the patient's request and they felt that he was adequate for home with home health and did not need rehab. Case Management was consulted and the patient was set up with home health on discharge. History of ALL: With regard to his ALL, Hematology was consulted and recommended he follow up with his oncologist in [place]. He did recently receive chemotherapy and Neulasta earlier this month. Per Dr. Koenig's recommendation, the patient probably would not be a good candidate for chemotherapy and should discuss hospice. Abdominal distention: The patient was noted to have a very distended abdomen. CT abdomen was checked, which showed splenomegaly. There is also a bilateral inguinal hernia and cholelithiasis, which the patient was not symptomatic with. The splenomegaly is most likely secondary to his ALL. This can be followed up as an outpatient. Peripheral edema: An echocardiogram was checked, which showed EF of 55% to 60% with diastolic dysfunction. He also had Dopplers checked, which were negative for DVT. DISCHARGE PHYSICAL EXAMINATION: VITAL SIGNS: Temperature 96.1, heart rate 78, respiratory rate 20, O2 saturation 95% on 4 L nasal cannula. GENERAL: The patient is alert, awake, and oriented x3. He is on 4 L nasal cannula currently. CARDIOVASCULAR SYSTEM: Regular rate and rhythm with no murmurs, rubs, or gallops. LUNGS: Diminished breath sounds bilaterally. ABDOMEN: Very distended abdomen. It is firm, but not tender. There is positive bowel sounds. EXTREMITIES: Mild edema. PERTINENT LABORATORY DATA: CBC on 01/18: White count 3.2, hemoglobin 8.4, hematocrit 25.2, platelet count of 176. BMP on 01/18: CO2 was 35. Otherwise unremarkable. Iron panel: Ferritin 920.34, iron 67, TIBC 254, percent sat 26. LFTs on 01/16: Normal. Troponin I: Less than 0.010, 0.012. BNP: 86.9. UA on 01/16: Normal. D-dimer on 01/16: 2.36. IMAGING: Echo on 01/17: EF 55% to 60%. Diastolic dysfunction, mild MR, mild TR. Chest x-ray on 01/16: Cardiomegaly and findings suggesting CHF. CTA thorax on 01/16: Right lower lobe pneumonia. No PE. Layering cholelithiasis. CT abdomen and pelvis on 01/16: Bibasilar infiltrates, cholelithiasis, splenomegaly. Venogram on 01/17: No acute DVT in lower extremities. DISCHARGE CONDITION: Stable. ACTIVITY: As tolerated. DIET: Heart healthy diet. DISCHARGE MEDICATIONS: New prescriptions: 1. Cefdinir 300 mg p.o. b.i.d. for another five days. 2. Levaquin 750 mg p.o. daily for another five days. Discontinued medications: Azithromycin. All other home medications were resumed. DISCHARGE INSTRUCTIONS: The patient is to follow up with his PCP in a week and his cancer doctor with regard to whether further chemotherapy is indicated. He should consider hospice. Continue taking prednisone daily for 5 more days. Consider repeat chest x-ray in 6 weeks. The patient will be discharged with home health. Job ID: [id number] [email or web address]
[2020-01-19] MEDS ORDERED: Insulin Glargine 50 UNITS in Pre-Filled Syringe 1 EACH SC SCH (21:00)
--- NOTE | 2020-01-20 08:19 | PQF ---
MADDIE RODRIGEZ, YAHAIRA [id number] [facility]- B11 [id number] CLINICAL DOCUMENTATION CLARIFICATION FORM: POST DISCHARGE Addendum to original discharge summary date: ____ Late entry note date: __ DATE:01/20/2020 ATTN: Yahaira Gibson Please exercise your independent, professional judgment in responding to the clarification form. Clinical indicators are provided on the bottom of this form for your review Please check appropriate box(s): [ ] Empirically treating Gram Negative Pneumonia [ ] Empirically treating Anaerobic Pneumonia [ ] Pneumonia secondary to (specify organism / underlying disease) [ ] Simple Pneumonia (community acquired - nosocomial) [ ] Bronchopneumonia [ ] Pneumonia of unknown etiology [ ] Other diagnosis [ X] Unable to determine For continuity of documentation, please document condition throughout progress notes and discharge summary. Thank You. CLINICAL INDICATORS - SIGNS / SYMPTOMS / LABS Laboratory 01/16 - WBC 2.8, Band 17, Neutrophils 28, Lactic acid 1.1 MRSA swab 01/17 Negative Vital signs 01/16 BP 101/52, Pulse 109, Resp 22 Chest Xray 12/26 There are patchy infiltrate opacities within the right lower lobe H&P p1 01/16 Dr Melo presented with shortness of breath H&P p1 01/16 Dr Melo The pt was evaluated by EMS, found to have an oxygen saturation of 84% on room air H&P p4 01/16 Dr Melo CTA: right lower lobe pneumonia.No PE H&P p5 01/16 Dr Melo Acute hypoxic/hypercapnic respiratory failure secondary to Pneumonia and COPD exacerbation RISK FACTORS H&P p1 01/16 69 year-old male H&P p1 01/16 COPD on nocturnal BiPap and home oxygen H&P p1 01/16 HTN H&P p1 01/16 DM H&P p1 01/16 Obesity H&P p3 01/16 Former Smoker Consult p1 01/17 LINDA TREATMENTS: Raspatory panel 01/16 - BiPaP DEC 19 IV Vancomycin 1.5gm DEC 19 Duoneb 3ml neb DEC 19 IV Cefepime 2gm DEC 19 IV Solumedrol 40mg Dec 19 Mucinex 600mg DEC 19 IV Levaquin 720mg DEC 20 IV Levofloxacin 750mg MRSA swab test 01/17 Chest Xray 01/16 Pulmonology Consult 01/17 Perry Long H&P p1 01/16 Oxygen via [place] (This form is maintained as a part of the permanent medical record) 2014 [email or web address], [employer]. All Rights Reserved [email or web address]
--- NOTE | 2020-01-20 08:21 | PQF ---
MADDIE RODRIGEZ, YAHAIRA [id number] [facility]- B11 [id number] CLINICAL DOCUMENTATION CLARIFICATION FORM: POST DISCHARGE Addendum to original discharge summary date: ____ Late entry note date: __ DATE:01/20/2020 ATTN: Yahaira Gibson Please exercise your independent, professional judgment in responding to the clarification form. Clinical indicators are provided on the bottom of this form for your review Please check appropriate box(es): [X ] Sepsis due to Pneumonia [ ] Severe sepsis with acute organ dysfunction of: (Examples: respiratory failure, encephalopathy, acute kidney failure, other) [ ] Septic Shock [ ] Localized infection without sepsis [ ] Other diagnosis [ ] Unable to determine In addition, please specify: Present on Admission (POA): [ ] Yes [ ] No [ ] Unable to determine For continuity of documentation, please document condition throughout progress notes and discharge summary. Thank You. CLINICAL INDICATORS - SIGNS / SYMPTOMS / LABS Laboratory 01/16 - WBC 2.8, Band 17, Neutrophils 28, Lactic acid 1.1 MRSA swab 01/17 Negative Vital signs 01/16 BP 101/52, Pulse 109, Resp 22 H&P p1 01/16 Dr Melo presented with shortness of breath H&P p1 01/16 Dr Melo The pt was evaluated by EMS, found to have an oxygen saturation of 84% on room air H&P p4 01/16 Dr Melo CTA: right lower lobe pneumonia.No PE H&P p5 01/16 Dr Melo Acute hypoxic/hypercapnic respiratory failure secondary to Pneumonia and COPD exacerbation RISK FACTORS H&P p1 01/16 69 year-old male H&P p1 01/16 COPD on nocturnal BiPap and home oxygen H&P p1 01/16 HTN H&P p1 01/16 DM H&P p1 01/16 Obesity H&P p3 01/16 Former Smoker Consult p1 01/17 LINDA TREATMENTS: Respatory panel 01/16 - BiPaP DEC 19 IV Vancomycin 1.5gm DEC 19 Duoneb 3ml neb DEC 19 IV Cefepime 2gm DEC 19 IV Solumedrol 40mg Dec 19 Mucinex 600mg DEC 19 IV Levaquin 720mg DEC 20 IV Levofloxacin 750mg Blood Culture obtained 01/16 MRSA swab test 01/17 Chest Xray 01/16 H&P p1 01/16 Oxygen via [place] (This form is maintained as a part of the permanent medical record) 2014 [employer], [email or web address]. All Rights Reserved [email or web address]
--- NOTE | 2020-01-20 14:15 | EKG ---
Test Reason : Blood Pressure : / mmHG Vent. Rate : 111 BPM Atrial Rate : 111 BPM P-R Int : 166 ms QRS Dur : 116 ms QT Int : 344 ms P-R-T Axes : 054 091 065 degrees QTc Int : 467 ms Sinus tachycardia with Premature atrial complexes Rightward axis Borderline ECG Confirmed by IVY GOMEZ, RACHID ([id number]), offline editor ROMINA WELLS ([id number]) on 01/20/2020 2:14:49 PM Referred By: Confirmed By:RACHID HAYNES MD
--- NOTE | 2020-01-22 19:36 | PQF ---
MADDIE RODRIGEZ, YAHAIRA [id number] [facility]- B11 [id number] CLINICAL DOCUMENTATION CLARIFICATION FORM: POST DISCHARGE Addendum to original discharge summary date: ____ Late entry note date: __ DATE:01/22/2020 ATTN: Yahaira Gibson Please exercise your independent, professional judgment in responding to the clarification form. Clinical indicators are provided on the bottom of this form for your review Diagnosis: Sepsis Present on Admission (POA): [ X ] Yes [ ] No [ ] Unable to determine Coding guidelines require hospitals to identify whether a diagnosis was present on admission (POA) or not. To accurately assign the appropriate POA indicator, this information must be clearly documented within the medical record. CLINICAL INDICATORS - SIGNS / SYMPTOMS / LABS Laboratory 01/16 - WBC 2.8, Band 17, Neutrophils 28, Lactic acid 1.1 MRSA swab 01/17 Negative Vital signs 01/16 BP 101/52, Pulse 109, Resp 22 H&P p1 01/16 Dr Melo presenred with shortness of breath H&P p1 01/16 Dr Melo The pt was evaluated by EMS, found to have an oxygen saturation of 84% on room air H&P p4 01/16 Dr Melo CTA: right lower lobe pneumonia.No PE H&P p5 01/16 Dr Melo Acute hypoxic/hypercapnic respiratory failure secondary to Pneumonia and COPD exacerbation Physician Documentation p1 01/19 Sepsis due to Pneumonia RISK FACTORS H&P p1 01/16 69 year-old male H&P p1 01/16 COPD on nocturnal BiPap and home oxygen H&P p1 01/16 HTN H&P p1 01/16 DM H&P p1 01/16 Obesity H&P p3 01/16 Former Smoker Consult p1 01/17 LINDA TREATMENTS: Raspatory panel 01/16 - BiPaP DEC 19 IV Vancomycin 1.5gm DEC 19 Duoneb 3ml neb DEC 19 IV Cefepime 2gm DEC 19 IV Solumedrol 40mg Mar 01/16 Mucinex 600mg DEC 19 IV Levaquin 720mg DEC 20 IV Levofloxacin 750mg Blood Culture obtained 01/16 MRSA swab test 01/17 Chest Xray 01/16 H&P p1 01/16 Oxygen via [place] (This form is maintained as a part of the permanent medical record) 2014 [employer], [employer]. All Rights Reserved [email or web address]
== END 2020-01-19 17:46 | disposition home health service (06) | DRG 871 ==
LOC: ERS 11:03 → IMCU/EMU 13:33
PROVIDERS: ADMIT Internal Medicine; ATTEND Internal Medicine
PROC: 5A09357 Assistance with Respiratory Ventilation, Less than 24 Consecutive Hours, Continuous Positive Airway Pressure (ICD-10-PCS; principal; 2020-01-17)
DX: A41.9 Sepsis, unspecified organism (principal); J18.9 Pneumonia, unspecified organism; J96.21 Acute and chronic respiratory failure with hypoxia; J96.22 Acute and chronic respiratory failure with hypercapnia; J44.1 Chronic obstructive pulmonary disease with (acute) exacerbation; J44.0 Chronic obstructive pulmonary disease with (acute) lower respiratory infection; C91.00 Acute lymphoblastic leukemia not having achieved remission; Z68.42 Body mass index [BMI] 45.0-49.9, adult; K40.90 Unilateral inguinal hernia, without obstruction or gangrene, not specified as recurrent; K80.20 Calculus of gallbladder without cholecystitis without obstruction; E78.5 Hyperlipidemia, unspecified; I10 Essential (primary) hypertension; F32.9 Major depressive disorder, single episode, unspecified; E66.01 Morbid (severe) obesity due to excess calories; G47.33 Obstructive sleep apnea (adult) (pediatric); E11.65 Type 2 diabetes mellitus with hyperglycemia; D70.1 Agranulocytosis secondary to cancer chemotherapy; T45.1X5A Adverse effect of antineoplastic and immunosuppressive drugs, initial encounter; R60.0 Localized edema; D63.8 Anemia in other chronic diseases classified elsewhere; I51.89 Other ill-defined heart diseases; Z87.891 Personal history of nicotine dependence; Z99.81 Dependence on supplemental oxygen; Z79.899 Other long term (current) drug therapy; Z79.82 Long term (current) use of aspirin; Z79.4 Long term (current) use of insulin; Z86.018 Personal history of other benign neoplasm
CPT/HCPCS: 36415; 36416; 71045; 71275; 74176; 80048; 80053; 80202; 81003; 82550; 82728; 82805; 83540; 83550; 83605; 83690; 83880; 84484; 85025; 85027; 85379; 87040; 87081; 93005; 93306; 93970; 94640; 94660; 94760; 96361; 96365; 96367; 96368; 96375; J0692; J1100; J1650; J1815; J1956; J2920; J3370; J3475; J3490; J7620; Q9967